=== PATIENT | female | born 1955 | race Hispanic/Latino ===

== ENCOUNTER 2020-03-02 00:45 | Emergency (ER) | payer BC ==
[~2020-03-02] VITALS: Ht 167.6 cm; Wt 72.6 kg
[~2020-03-02 00:45] MED LIST: PLAQUENIL200 MG PO; Z.0.VAGIFEM10 MCG VG; Z.0.VICODIN 5-5001 E PO; Z.1.DIOVAN HCT 1601 PO; [UNRECOGNIZED DRUG - OTHER] SQ
--- OUTSIDE RECORDS SUMMARY | 2020-03-02 00:48 | XMS REPORT ---
Author Author APRIL Del Cid Organization [employer] Address Unknown Phone Unavailable Care Team Providers Care Fishing Floats Assembler Name Role Phone Min Del Cid CP Unavailable Allergies No Known Allergies Problems Problem Type Condition Code Onset Dates Condition Statu s Problem Osteopenia M85.80 Active Problem Right foot pain M79.671 Active Problem Myofascial pain M79.1 Active Problem Other shelter (current) drug therapy Z79.899 Active Problem Rheumatoid arthritis with rh eumatoid factor of multiple sites without organ or systems involvement M05.79 Active Problem Posterior tibial tendinitis, right leg M76.821 Active Problem Ankle pain, right M25.571 Active Problem Pain in right knee M25.561 Active Problem Liver function abnormality K76.89 A ctive Problem Vitamin D deficiency E55.9 Active Problem Encounter for immunization Z23 A ctive Problem Primary osteoarthritis involving multiple joints M15.0 Active Problem Shortness of breath R06.02 Active Medications No Known Medications Results No Known Results Summary Purpose eClinicalWorks Submission
--- OUTSIDE RECORDS SUMMARY | 2020-03-02 00:48 | XMS REPORT | Continuity of Care Document ---
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 Active Problem Chapo Del Cid Shortness of breath Active Problem 02/23/2020 Chapo Del Cid Vitamin D deficiency Active Problem 02/23/2020 Chapo Del Cid Primary osteoarthritis involving multiple joints Active Problem 02/23/2020 Chapo Del Cid Myofascial pain Active Problem 02/23/2020 Chapo Del Cid Osteopenia Active Problem 07/11/2019 Chapo Del Cid Encounter for immunization Act marixa Problem Chapo Nehemias Right foot pain Active Problem 02/23/2020 Chapo Del Cid Osteoporosis Active Problem 02/23/2020 Chapo Nehemias Ankle pain, right Active Problem 02/23/2020 Chapo Nehemias Liver function abnormality Act marixa Problem Chapo Nehemias Pain in right knee Active Problem 02/23/2020 Chapo Del Cid Elevated LFTs Active Diagnosis 05/10/2019 Chapo Del Cid Elevated liver enzymes Active Diagnosis 05/10/2019 Chapo Del Cid Right knee meniscal tear Active Diagnosis 01/23/2019 Chapo Del Cid Elevated liver function tests Active Diagnosis 0 04/28/2019 Chapo Del Cid jail prescription opiate use Active Diagnosis 0 05/26/2019 Chapo Del Cid Opiate use Active Problem 02/23/2020 Chapo Del Cid Immunocompromised state Active Problem 02/23/2020 Chapo Del Cid Other chronic pain Active Problem 02/23/2020 Chapo Del Cid Abnormal kidney function study Active Diagnosis 0 02/08/2020 Chapo Del Cid jail (current) use of opiate analgesic Active Diagnosis 02/08/2020 Chapo Del Cid Medications Medication Details Route Status Patient Instructions Ordering Provider Order Date Source Hydroxychloroquine Sulfate 1 t ablet Orally Active 200 MG Orally Once a day [place] 01/15/2020 Chapo Del Cid Enbrel SureClick 1 ml Subcutaneous Active 50 MG/ML Subcutaneous every week [place] 12/26/2019 Chapo Del Cid Hydrocodone-Acetaminophen 1 ta blet Orally Active 5-325 MG Orally BID [place] 10/09/2019 Chapo Del Cid Hydrocodone-Acetaminophen 1 ta blet Orally Active 10-325 MG Orally BID [place] 10/09/2019 Chapo Del Cid Hydroxychloroquine Sulfate 1 t ablet Orally Active 200 MG Orally Once a day [place] 09/19/2019 Chapo Del Cid Prolia as directed Subcutaneous Active 60 MG/ML Subcutaneous Q 6 MONTHS [place] 09/17/2019 Chapo Del Cid PredniSONE 1 tablet Orally Active 5 MG Orally Once a day [place] 09/14/2019 Chapo Del Cid Sulfasalazine 3 tabs Orally Active 500 MG Orally bid [facility] 06/26/2019 Chapo Del Cid PredniSONE 2 tablets Orally Active 5 MG Orally Once a day [facility] 05/28/2019 Chapo Del Cid PredniSONE 5 tablets Orally Active 1 MG Orally Once a day [place] 05/28/2019 Chapo Del Cid Enbrel SureClick 1 ml Subcutaneous Active 50 MG/ML Subcutaneous every week [place] 04/30/2019 Chapo Del Cid PredniSONE 1 tablet Orally Active 10 MG Orally Once a day [facility] 04/22/2019 Chapo Del Cid Medrol Dose [place] as directed Orally Active 4mg Orally once a day [facility] 04/17/2019 Chapo Del Cid Humira Pen 0.8 ml Subcutaneous Active 40 MG/0.8ML Subcutaneou s Every two weeks [place] 02/12/2019 Chapo Del Cid Voltaren Gel apply to affected area Transdermal Active 1% Transdermal Four times a day [facility] 01/05/2019 Chapo Del Cid Medrol Dose [place] as directed Orally Active 4mg Orally once a day [facility] 01/05/2019 Chapo Del Cid PredniSONE 2 tablets Orally Active 10 MG Orally q am with food [place] 10/20/2018 Chapo Del Cid Medrol 2 tablets with food or milk in the morning Orally Active 4 MG Orally q am with food [place] 10/12/2018 Chapo Del Cid Medrol Dose [place] as directed Orally Active 4mg Orally as directed [place] 09/21/2018 Chapo Del Cid Hydroxychloroquine Sulfate 1 T ablet Orally Active 200 MG Orally Twice a day Del Cid 09/05/2018 Chapo Del Cid PredniSONE 2 tablets Orally Active 5 MG Orally Once a day Del Cid 01/16/2018 Chapo Del Cid Humira Pen 0.8 ml Subcutaneous Active 40 MG/0.8ML Subcutaneou s Every two weeks Zelayamariano Del Cid Hydroxychloroquine Sulfate 1 t ablet Orally Active 200 MG Orally Twice a day Julio Cesar Chapo Del Cid Probiotic as directed Orally Active OTC Orally Once a day Eric Del Cid Vagifem 1 tablet Vaginal Active 10 MCG Vaginal twice a week Eric Del Cid Valsartan-Hydrochlorothiazide 1 tablet Orally Active 160-12.5 MG Orally Once a day Eric Del Cid Calcium 500 + D 1 tablet with food Orally Active 500-600 MG-IU Orally Once a day Nehemias Del Cid Omeprazole 1 capsule as needed Orally Active 20 MG Orally as needed Julio Cesar Chapo Del Cid Hydrocodone-Acetaminophen 1 ta blet Orally Active 500mg Orally PRJoao Del Cid Pataday as directed Ophthalmic Active 0.2 % Ophthalmic as nee ded Julio Cesar Chapo Del Cid Hydrocodone-Acetaminophen 1 ta blet Orally Active 500mg Orally GOLDEN Del Cid Hydrocodone-Acetaminophen 1 ta blet Orally Active 5-325 MG Orally BID Julio Cesar Chapo Del Cid Protonix 1 tablet Orally Active 20 MG Orally Once a day Eric Del Cid PredniSONE 1 tablet Orally Active 20 MG Orally Once a day [facility] darian Del Cid Humira Pen 0.8 ml Subcutaneous Active 40 MG/0.8ML Subcutaneou s Every two weeks Nehemias Del Cid Hydroxychloroquine Sulfate 1 t ablet Orally Active 200 MG Orally Once a day Julio Cesar Chapo Del Cid Allergies, Adverse Reactions, Alerts Substance Category Reaction Severity Reaction type Status Date Reported Comments Source Simvastatin Adverse Reaction elevated liver enzymes Adverse Reaction Active 01/22/2020 Chapo Del Cid Celebrex Adverse Reaction increased blood pressure Adverse Reaction Active 01/22/2020 Chapo Del Cid Methotrexate Adverse Reaction not tolerated Adverse Reaction Active 01/22/2020 Chapo Del Cid Prednisone Adverse Reaction elevated liver functions Adverse Reaction Active 01/22/2020 Chapo Del Cid Sulfasalazine Adverse Reaction stomach upset Adverse Reaction Active 01/22/2020 Chapo Del Cid Immunizations No Data Provided for This Section Results No Data Provided for This Section Pathology Reports No Data Provided for This Section Diagnostic Reports No Data Provided for This Section Consultation Notes No Data Provided for This Section Discharge Summaries No Data Provided for This Section History and Physicals No Data Provided for This Section Vital Signs Vital Sign Value Date Comments Source Weight 172.8 01/22/2020 Chapo Del Cid Height 65 0 01/22/2020 Chapo Del Cid Temperature Oral (F) 98.0 F 01/22/2020 Chapo Del Cid Heart Rate 78 01/22/2020 Chapo Del Cid Diastolic (mm Hg) 80 01/22/2020 Chapo Del Cid Systolic (mm Hg) 142 01/22/2020 Chapo Del Cid Weight 175.1 12/18/2019 Chapo Del Cid Height 65 0 12/18/2019 Chapo Del Cid Temperature Oral (F) 98.5 F 12/18/2019 Chapo Del Cid Heart Rate 84 12/18/2019 Chapo Del Cid Diastolic (mm Hg) 76 12/18/2019 Chapo Del Cid Systolic (mm Hg) 122 12/18/2019 Chapo Del Cid Weight 175.2 11/13/2019 Chapo Del Cid Height 65.5 11/13/2019 Chapo Del Cid Temperature Oral (F) 98.8 F 11/13/2019 Chapo Del Cid Heart Rate 112 11/13/2019 Chapo Del Cid Diastolic (mm Hg) 82 11/13/2019 Chapo Del Cid Systolic (mm Hg) 144 11/13/2019 Chapo Del Cid Weight 167.7 06/26/2019 Chapo Del Cid Height 65 0 06/26/2019 Chapo Del Cid Temperature Oral (F) 99.2 F 06/26/2019 Chapo Del Cid Heart Rate 80 06/26/2019 Chapo Del Cid Diastolic (mm Hg) 78 06/26/2019 Chapo Del Cid Systolic (mm Hg) 132 06/26/2019 Chapo Del Cid Weight 179.1 03/15/2019 Chapo Del Cid Height 66 0 03/15/2019 Chpao Del Cid Temperature Oral (F) 98.2 F 03/15/2019 Chapo Del Cid Heart Rate 96 03/15/2019 Chapo Del Cid Diastolic (mm Hg) 80 03/15/2019 Chapo Del Cid Systolic (mm Hg) 148 03/15/2019 Chapo Del Cid Weight 181 12/11/2018 Chapo Del Cid Height 66 0 12/11/2018 Chapo Del Cid Temperature Oral (F) 98.1 F 12/11/2018 Chapo Del Cid Heart Rate 84 12/11/2018 Chapo Del Cid Diastolic (mm Hg) 62 12/11/2018 Chapo Del Cid Systolic (mm Hg) 132 12/11/2018 Chapo Del Cid Weight 180.6 11/02/2018 Chapo Del Cid Height 66 0 11/02/2018 Chapo Del Cid Temperature Oral (F) 97.3 F 11/02/2018 Chapo Del Cid Heart Rate 72 11/02/2018 Chapo Del Cid Diastolic (mm Hg) 70 11/02/2018 Chapo Del Cid Systolic (mm Hg) 132 11/02/2018 Chapo Del Cid Weight 183.8 09/21/2018 Chapo Del Cid Height 65 1 11/22/2017 Chapo Del Cid Temperature Oral (F) 97.8 F 09/21/2018 Chapo Del Cid Heart Rate 72 09/21/2018 Chapo Del Cid Diastolic (mm Hg) 70 09/21/2018 Chapo Del Cid Systolic (mm Hg) 138 09/21/2018 Chapo Del Cid Weight 178.2 05/22/2018 Chapo Del Cid Height 65 0 05/22/2018 Chapo Del Cid Temperature Oral (F) 97.8 F 05/22/2018 Chapo Del Cid Heart Rate 76 05/22/2018 Chapo Del Cid Diastolic (mm Hg) 80 05/22/2018 Chapo Del Cid Systolic (mm Hg) 122 05/22/2018 Chapo Del Cid Weight 183 01/16/2018 Chapo Del Cid Height 65 0 01/16/2018 Chapo Del Cid Temperature Oral (F) 98.3 F 01/16/2018 Chapo Del Cid Heart Rate 72 01/16/2018 Chapo Del Cid Diastolic (mm Hg) 90 01/16/2018 Chapo Del Cid Systolic (mm Hg) 140 01/16/2018 Chapo Del Cid Weight 184 09/15/2017 Chapo Del Cid Height 65 1 11/16/2016 Chapo Del Cid Temperature Oral (F) 97.6 F 09/15/2017 Chapo Del Cid Heart Rate 76 09/15/2017 Chapo Del Cid Diastolic (mm Hg) 80 09/15/2017 Chapo Del Cid Systolic (mm Hg) 136 09/15/2017 Chapo Del Cid Encounters No Data Provided for This Section Procedures No Data Provided for This Section Assessment and Plan No Data Provided for This Section Plan of Care No Data Provided for This Section Social History No Data Provided for This Section Family History No Data Provided for This Section Advance Directives No Data Provided for This Section Functional Status No Data Provided for This Section
--- OUTSIDE RECORDS SUMMARY | 2020-03-02 00:48 | XMS REPORT | Clinical Summary ---
Author Author Uriel Buddhist Organization [employer] Address Unknown Phone Unavailable Care Team Providers Care Police Communications Operator Name Role Phone Asked, No Pcp PCP Unavailable Allergies No Known Allergies Medications End Date Status Medication Sig Dispensed Refills Start Date Active omeprazole (PriLOSEC) 20 Take 20 mg by 0 MG capsule mouth daily. Active hydroxychloroquine Take 200 mg 0 (PLAQUENIL) 200 mg tablet by mouth daily. Active amoxicillin (AMOXIL) 500 Take 500 mg 0 MG capsule by mouth 2 (two) times a day. Active valsartan-hydrochlorothia Take 1 tablet 0 zide (DIOVAN-HCT) by mouth 160-12.5 mg per tablet daily. Active pantoprazole (PROTONIX) Take 40 mg by 0 40 MG EC tablet mouth daily. Active HYDROcodone-acetaminophen Take 1 tablet 0 (NORCO) 5-325 mg per by mouth tabletIndications: acute every 6 (six) pain hours as needed for moderate pain .Acute Pain. Active naproxen sodium (ALEVE) Take by 0 220 mg capsule mouth. Active etanercept (ENBREL) 50 Inject 50 mg 0 mg/mL (0.98 mL) injection under the skin once a week. Active predniSONE (DELTASONE) 10 Take 10 mg by 0 mg tablet mouth daily. Active Problems Not on file Encounters Care Team Description Date Type Specialty Leroy Snyder MD Primary localized osteoarthrosis of righ t lower leg (Primary Dx); Rheumatoid arthritis involving multiple sites with positive rheumatoid factor (HCC) 07/06/2019 Office Visit Orthopedic Surgery after 03/02/2019 Social History Date Tobacco Use Types Packs/Day Years Used Never Smoker Smokeless Tobacco: Never Used Drinks/Week oz/Week Comments Alcohol Use No Sex Assigned at Date Recorded Not on file Industry Job Start Date Occupation Not on file Not on file Not on file Travel End Travel History Travel Start No recent travel history available. Last Filed Vital Signs Reading Time Taken Comments Vital Sign - - Blood Pressure - - Pulse - - Temperature - - Respiratory Rate - - Oxygen Saturation - - Inhaled Oxygen Concentration 76.2 kg (168 lb) 07/06/2019 9:45 AM CDT Weight 166.4 cm (5' 5.5") 07/06/2019 9:45 AM CDT Height 27.53 07/06/2019 9:45 AM CDT Body Mass Index Plan of Treatment Health Maintenance Due Date Last Done Comments CERVICAL CANCER SCREENING 1977 BREAST CANCER SCREENING 2006 COLONOSCOPY SCREENING 2006 SHINGLES VACCINES (#1) 2006 INFLUENZA VACCINE 05/10/2020 Procedures Comments Procedure Name Priority Date/Time Associated Diag nosis XR KNEE 4+ VW RIGHT Routine 07/06/2019 Primary lo calized 10:20 AM CDT osteoarthrosis of right lower leg NE ARTHROCENTESIS Routine 07/06/2019 Primary loca lized ASPIR&/INJ MAJOR JT/BURSA 9:45 AM CDT osteoarthro sis of right W/O US lower leg after 03/02/2019 Results * XR Knee 4+ Vw Right (07/06/2019 10:20 AM CDT) Specimen Narrative Performed At [facility] X-ray of the right knee shows the patie nt has moderate narrowing of the medial compartment on the Ale[place] vie w as well as moderate narrowing of the patellofemoral compartment subchond ral sclerosis. Performing Organization Address City/State/Zipcode Ph one Number [facility] [address] [place] [address] * Large Joint Arthrocentesis: knee, R knee (07/06/2019 9:45 AM CDT) Narrative Performed At Leroy Snyder MD 019 10:46 AM Large Joint Arthrocentesis: knee, R kne e Consent given by: patient Supporting Documentation Indications: pain Procedure Details Location: knee - R knee Right side: Needle size: 22 G Approach: anteromedial Right knee medications administered: 3 mL lidocaine 10 mg/mL (1 %); 1 mL triamcinolone acetonide 40 mg/mL Patient tolerance: patient tolerated th e procedure well with no immediate complications after 03/02/2019 Insurance Type Payer Benefit Subscriber ID Effective Phone Address Plan / Dates Group PPO BCBS BCBS xxxxxxxxxxxx 2009-P CHOICE resent PPO/ASHLEY YAP PPO
--- OUTSIDE RECORDS SUMMARY | 2020-03-02 00:48 | XMS REPORT ---
Author Author APRIL Reyes Organization [employer] Address Unknown Phone Unavailable Care Team Providers Care Scratch Brusher Name Role Phone Lulu Reyes CP Unavailable Allergies No Known Allergies Problems Problem Type Condition Code Onset Dates Condition Statu s Problem Myofascial pain M79.1 Active Problem Encounter for immunization Z23 A ctive Problem Right foot pain M79.671 Active Problem Other jail (current) drug therapy Z79.899 Active Problem Rheumatoid arthritis with rh eumatoid factor of multiple sites without organ or systems involvement M05.79 Active Problem Posterior tibial tendinitis, right leg M76.821 Active Problem Osteoporosis M81.0 Active Problem Ankle pain, right M25.571 Active Problem Liver function abnormality K76.89 A ctive Problem Shortness of breath R06.02 Active Problem Vitamin D deficiency E55.9 Active Problem Pain in right knee M25.561 Active Problem Primary osteoarthritis involving multiple joints M15.0 Active Medications No Known Medications Results No Known Results Summary Purpose [employer]ClinicalWorks Submission
--- OUTSIDE RECORDS SUMMARY | 2020-03-02 00:48 | XMS REPORT ---
Author Author APRIL Del Cid Organization [employer] Address Unknown Phone Unavailable Care Team Providers Care Patent Drafter Name Role Phone Min Del Cid CP Unavailable Allergies No Known Allergies Problems Problem Type Condition Code Onset Dates Condition Statu s Problem Osteopenia M85.80 Active Problem Right foot pain M79.671 Active Problem Myofascial pain M79.1 Active Problem Other longterm (current) drug therapy Z79.899 Active Problem Rheumatoid [...]
--- OUTSIDE RECORDS SUMMARY | 2020-03-02 00:49 | XMS REPORT ---
Author Author APRIL Del Cid Organization [employer] Address Unknown Phone Unavailable Care Team Providers Care Server Engineer Name Role Phone Min Del Cid CP Unavailable Allergies No Known Allergies Problems Problem Type Condition Code Onset Dates Condition Statu s Problem Myofascial pain M79.1 Active Problem Encounter for immunization Z23 A ctive Problem Right foot pain M79.671 Active Problem Other correction (current) drug therapy Z79.899 Active Problem Rheumatoid [...]
--- OUTSIDE RECORDS SUMMARY | 2020-03-02 00:49 | XMS REPORT ---
Author Author APRIL Harrell Organization [employer] Address Unknown Phone Unavailable Care Team Providers Care Manager Cash Name Role Phone Doreen Harrell CP Unavailable Allergies No Known Allergies Problems Problem Type Condition Code Onset Dates Condition Statu s Problem Posterior tibial tendinitis, right leg M76.821 Active Problem Myofascial pain M79.1 Active Problem Osteopenia M85.80 Active Problem Other custodial (current) drug therapy Z79.899 Active Problem Rheumatoid arthritis with rh eumatoid factor of multiple sites without organ or systems involvement M05.79 Active Problem Pain in right knee M25.561 Active Problem Primary osteoarthritis involving multiple joints M15.0 Active Problem Ankle pain, right M25.571 Active Problem Encounter for immunization Z23 A ctive Problem Right foot pain M79.671 Active Problem Shortness of breath R06.02 Active Problem Vitamin D deficiency E55.9 Active Medications Medication Code System Code Instructions Start Date End Date Status Dosage Medrol Dose [facility] [id number] 4mg Orally once a day April 17, 2019 Active as directed Results No Known Results Summary Purpose [employer]ClinicalWorks Submission
--- OUTSIDE RECORDS SUMMARY | 2020-03-02 00:49 | XMS REPORT ---
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
--- OUTSIDE RECORDS SUMMARY | 2020-03-02 00:49 | XMS REPORT ---
Author Author APRIL Harrell Organization [employer] Address Unknown Phone Unavailable Care Team Providers Care Learning Facilitator Name Role Phone Doreen Harrell CP Unavailable Allergies No Known Allergies Problems Problem Type Condition Code Onset Dates Condition Statu s Problem Posterior tibial tendinitis, right leg M76.821 Active Problem Myofascial pain M79.1 Active Problem Osteopenia M85.80 Active Problem Other [facility] (current) drug therapy Z79.899 Active Problem Rheumatoid [...]
--- OUTSIDE RECORDS SUMMARY | 2020-03-02 00:49 | XMS REPORT ---
Author Author APRIL Del Cid Organization [employer] Address Unknown Phone Unavailable Care Team Providers Care Dross Puller Name Role Phone Min Del Cid CP Unavailable Allergies No Known Allergies Problems Problem Type Condition Code Onset Dates Condition Statu s Problem Myofascial pain M79.1 Active Problem Encounter for immunization Z23 A ctive Problem Right foot pain M79.671 Active Problem Other half-way (current) drug therapy Z79.899 Active Problem Rheumatoid [...]
--- OUTSIDE RECORDS SUMMARY | 2020-03-02 00:49 | XMS REPORT ---
Author Author APRIL Del Cid Organization [employer] Address Unknown Phone Unavailable Care Team Providers Care Metropolitan Editor Name Role Phone Min Del Cid CP Unavailable Allergies No Known Allergies Problems Problem Type Condition Code Onset Dates Condition Statu s Problem Posterior tibial tendinitis, right leg M76.821 Active Problem Rheumatoid arthritis with rh eumatoid factor of multiple sites without organ or systems involvement M05.79 Active Problem Other long term care phlebotomist (current) drug therapy Z79.899 Active Problem Shortness of breath R06.02 Active Problem Vitamin D deficiency E55.9 Active Problem Primary osteoarthritis involving multiple joints M15.0 Active Problem Myofascial pain M79.1 Active Problem Osteopenia M85.80 Active Problem Encounter for immunization Z23 A ctive Problem Right foot pain M79.671 Active Medications No Known Medications Results No Known Results Summary Purpose [employer]ClinicalWorks Submission
--- OUTSIDE RECORDS SUMMARY | 2020-03-02 00:49 | XMS REPORT ---
Author Author APRIL Del Cid Organization [employer] Address Unknown Phone Unavailable Care Team Providers Care Test Desk Supervisor Name Role Phone Min Del Cid CP Unavailable Allergies No Known Allergies Problems Problem Type Condition Code Onset Dates Condition Statu s Problem Vitamin D deficiency E55.9 Active Problem Primary osteoarthritis involving multiple joints M15.0 Active Problem Shortness of breath R06.02 Active Problem Opiate use F11.90 Active Problem Immunocompromised state D89.9 Acti ve Problem Other chronic pain G89.29 Active Problem Ankle pain, right M25.571 Active Problem Pain in right knee M25.561 Active Problem Liver function abnormality K76.89 A ctive Problem Osteoporosis M81.0 Active Assessment Ankle pain, right M25.571 Active Problem Posterior tibial tendinitis, right leg M76.821 Active Problem Myofascial pain M79.1 Active Problem Other [facility] (current) drug therapy Z79.899 Active Problem Right foot pain M79.671 Active Problem Rheumatoid arthritis with rh eumatoid factor of multiple sites without organ or systems involvement M05.79 Active Problem Encounter for immunization Z23 A ctive Medications No Known Medications Results No Known Results Summary Purpose [employer] Submission
--- OUTSIDE RECORDS SUMMARY | 2020-03-02 00:49 | XMS REPORT ---
Author Author APRIL Del Cid Organization [employer] Address Unknown Phone Unavailable Care Team Providers Care Senior Science Consultant Name Role Phone Min Del Cid CP Unavailable Allergies No Known Allergies Problems Problem Type Condition Code Onset Dates Condition Statu s Problem Posterior tibial tendinitis, right leg M76.821 Active Problem Rheumatoid arthritis with rh eumatoid factor of multiple sites without organ or systems involvement M05.79 Active Problem Other snf (current) drug therapy Z79.899 Active Assessment Rheumatoid arthritis with rh eumatoid factor of multiple sites without organ or systems involvement M05.79 Active Problem Shortness of breath R06.02 Active Problem Vitamin D deficiency E55.9 Active Problem Primary osteoarthritis involving multiple joints M15.0 Active Problem Myofascial pain M79.1 Active Problem Osteopenia M85.80 Active Problem Encounter for immunization Z23 A ctive Problem Right foot pain M79.671 Active Medications No Known Medications Results No Known Results Summary Purpose [employer] Submission
--- OUTSIDE RECORDS SUMMARY | 2020-03-02 00:49 | XMS REPORT ---
Author Author APRIL Del Cid Organization [employer] Address Unknown Phone Unavailable Care Team Providers Care Rigger Apprentice Name Role Phone Min Del Cid CP Unavailable Allergies No Known Allergies Problems Problem Type Condition Code Onset Dates Condition Statu s Problem Posterior tibial tendinitis, right leg M76.821 Active Problem Myofascial pain M79.1 Active Problem Osteopenia M85.80 Active Problem Pain in right knee M25.561 Active Problem Primary osteoarthritis involving multiple joints M15.0 Active Problem Ankle pain, right M25.571 Active Problem Encounter for immunization Z23 A ctive Problem Right foot pain M79.671 Active Problem Shortness of breath R06.02 Active Problem Vitamin D deficiency E55.9 Active Assessment Elevated LFTs R79.89 Active Problem Other intermediate designer (current) drug therapy Z79.899 Active Assessment Elevated liver enzymes R74.8 Activ e Problem Rheumatoid arthritis with rh eumatoid factor of multiple sites without organ or systems involvement M05.79 Active Medications No Known Medications Results No Known Results Summary Purpose eClinicalWorks Submission
--- OUTSIDE RECORDS SUMMARY | 2020-03-02 00:49 | XMS REPORT ---
Author Author APRIL Harrell Organization [employer] Address Unknown Phone Unavailable Care Team Providers Care Security Strategist Name Role Phone Doreen Harrell CP Unavailable [...]
--- OUTSIDE RECORDS SUMMARY | 2020-03-02 00:49 | XMS REPORT ---
Author Author APRIL Del Cid Organization [employer] Address Unknown Phone Unavailable Care Team Providers Care Engineering Intern Name Role Phone Min Del Cid CP Unavailable Allergies No Known Allergies Problems Problem Type Condition Code Onset Dates Condition Statu s Problem Posterior tibial tendinitis, right leg M76.821 Active Problem Rheumatoid arthritis with rh eumatoid factor of multiple sites without organ or systems involvement M05.79 Active Problem Other special delivery worker (current) drug therapy Z79.899 Active Problem Shortness [...]
--- OUTSIDE RECORDS SUMMARY | 2020-03-02 00:49 | XMS REPORT ---
Author Author APRIL Del Cid Organization [employer] Address Unknown Phone Unavailable Care Team Providers Care Acoustical Tile Drill Press Operator Name Role Phone Min Del Cid CP Unavailable Allergies No Known Allergies Problems Problem Type Condition Code Onset Dates Condition Statu s Problem Myofascial pain M79.1 Active Problem Encounter for immunization Z23 A ctive Problem Right foot pain M79.671 Active Problem Other [facility] (current) drug therapy Z79.899 Active Problem Rheumatoid [...]
--- OUTSIDE RECORDS SUMMARY | 2020-03-02 00:49 | XMS REPORT ---
Author Author APRIL Zelaya [facility] [place] e[employer] Address Unknown Phone Unavailable Care Team Providers Care Finishing Wire Sawyer Name Role Phone Juliette Zelaya Unavailable Allergies, Adverse Reactions, Alerts Substance Reaction Event Type Simvastatin elevated liver enzymes Non Drug Allergy Celebrex increased blood pressure Non Drug Allerg y Methotrexate not tolerated Non Drug Allergy Prednisone elevated liver functions Non Drug Allerg y Problems Problem Type Condition Code Onset Dates Condition Statu s Problem Posterior tibial tendinitis, right leg M76.821 Active Problem Rheumatoid arthritis with rh eumatoid factor of multiple sites without organ or systems involvement M05.79 Active Problem Other predatory animal exterminator (current) drug therapy Z79.899 Active Assessment Other predatory animal exterminator (current) drug therapy Z79.899 Active Assessment Rheumatoid [...] Problem Right foot pain M79.671 Active Medications Medication Code System Code Instructions Start Date End Date Status Dosage Pataday [facility] 85254281951 0.2 % Ophthalmic as needed A ctive as directed Valsartan-Hydrochlorothiazide [facility] 93982790996 160-12.5 MG Orally Once a day Active 1 tablet Hydroxychloroquine Sulfate [facility] 09669595683 200 MG Orally Twice a day Active 1 tablet Humira Pen [facility] 31310271450 40 MG/0.8ML Subcutaneous Every two weeks Active 0.8 ml Vagifem [facility] 73990894701 10 MCG Vaginal twice a week Active 1 tablet Omeprazole [facility] 74317959708 20 MG Orally as needed Ac tive 1 capsule as needed PredniSONE [facility] 33694679261 20 MG Orally Once a day A ctive 1 tablet Probiotic [facility] 65331853211 OTC Orally Once a day Acti ve as directed Medrol [facility] 91924535145 4 MG Orally q am with food Oct 12 9 January 10, 2019 Active 2 tablets with food or milk in the morni ng Hydrocodone-Acetaminophen [facility] 19751790491 5-325 MG Orally BID Active 1 tablet Vital Signs Date/Time: December 11, 2018 BMI 29.21 Index Weight 181 lbs Height 66 in Temperature 98.1 F Cardiac Monitoring Heart Rate 84 /min Blood Pressure Diastolic 62 mm Hg Blood Pressure Systolic 132 mm Hg Results Name Result Date Reference Range Unit Abnormali ty Flag Skeletal Muscle Relaxants Sedatives Opiates/Opioids Illicits PROVIDED MEDICATIONS ----PROVIDED MEDICATIONS N/A [id number] ANTIDEPRESSANTS Amphetamines Benzodiazepines 1099 SPECIMEN VALIDITY TESTING Barbiturates Summary Purpose eClinicalWorks Submission
--- OUTSIDE RECORDS SUMMARY | 2020-03-02 00:49 | XMS REPORT ---
Author Author APRIL Del Cid Organization [employer] Address Unknown Phone Unavailable Care Team Providers Care Product Lister Name Role Phone Min Del Cid CP Unavailable Allergies No Known Allergies Problems Problem Type Condition Code Onset Dates Condition Statu s Problem Myofascial pain M79.1 Active Problem Encounter for immunization Z23 A ctive Problem Right foot pain M79.671 Active Problem Other halfway (current) drug therapy Z79.899 Active Problem Rheumatoid [...]
--- OUTSIDE RECORDS SUMMARY | 2020-03-02 00:49 | XMS REPORT ---
Author Author APRIL Del Cid Organization [employer] Address Unknown Phone Unavailable Care Team Providers Care Dryland Farmer Name Role Phone Min Del Cid CP Unavailable Allergies No Known Allergies Problems Problem Type Condition Code Onset Dates Condition Statu s Problem Posterior tibial tendinitis, right leg M76.821 Active Problem Rheumatoid arthritis with rh eumatoid factor of multiple sites without organ or systems involvement M05.79 Active Problem Other exterminator helper termite (current) drug therapy Z79.899 Active Problem Shortness [...]
--- OUTSIDE RECORDS SUMMARY | 2020-03-02 00:49 | XMS REPORT ---
Author Author APRIL Del Cid Organization [employer] Address Unknown Phone Unavailable Care Team Providers Care Dairy Clerk Name Role Phone Min Del Cid CP Unavailable Allergies No Known Allergies Problems Problem Type Condition Code Onset Dates Condition Statu s Problem Posterior tibial tendinitis, right leg M76.821 Active Problem Myofascial pain M79.1 Active Problem Osteopenia M85.80 Active Assessment Elevated liver function tests R94.5 Active Problem Other [facility] (current) drug therapy Z79.899 Active Problem Rheumatoid [...]
--- OUTSIDE RECORDS SUMMARY | 2020-03-02 00:49 | XMS REPORT ---
Author Author APRIL Del Cid Organization [employer] Address Unknown Phone Unavailable Care Team Providers Care Bread Oven Operator Name Role Phone Min Del Cid CP Unavailable Allergies No Known Allergies Problems Problem Type Condition Code Onset Dates Condition Statu s Problem Posterior tibial tendinitis, right leg M76.821 Active Problem Rheumatoid arthritis with rh eumatoid factor of multiple sites without organ or systems involvement M05.79 Active Problem Other skilled nursing (current) drug therapy Z79.899 Active Problem Shortness [...]
--- OUTSIDE RECORDS SUMMARY | 2020-03-02 00:49 | XMS REPORT ---
Author Author APRIL Del Cid Organization [employer] Address Unknown Phone Unavailable Care Team Providers Care Scout Name Role Phone Min Del Cid CP Unavailable Allergies No Known Allergies Problems Problem Type Condition Code Onset Dates Condition Statu s Problem Osteopenia M85.80 Active Problem Right foot pain M79.671 Active Problem Myofascial pain M79.1 Active Problem Other skilled nursing (current) drug therapy Z79.899 Active Problem Rheumatoid [...] Problem Shortness of breath R06.02 Active Medications Medication Code System Code Instructions Start Date End Date Status Dosage Humira Pen [facility] 26735338941 40 MG/0.8ML Subcutaneous Mary ry two weeks February 12, 2019 Active 0.8 ml Results No Known Results Summary Purpose eClinicalWorks Submission
--- OUTSIDE RECORDS SUMMARY | 2020-03-02 00:49 | XMS REPORT ---
Author Author APRIL Del Cid Organization [employer] Address Unknown Phone Unavailable Care Team Providers Care Dental Mechanic Name Role Phone Min Del Cid CP Unavailable Allergies No Known Allergies Problems Problem Type Condition Code Onset Dates Condition Statu s Problem Myofascial pain M79.1 Active Problem Encounter for immunization Z23 A ctive Problem Right foot pain M79.671 Active Problem Other [facility] (current) drug therapy [...] osteoarthritis involving multiple joints M15.0 Active Medications Medication Code System Code Instructions Start Date End Date Status Dosage Hydrocodone-Acetaminophen [facility] 29548726645 5-325 MG Orally BID De c 2018 Active 1 tablet Results No Known Results Summary Purpose eClinicalWorks Submission
--- OUTSIDE RECORDS SUMMARY | 2020-03-02 00:49 | XMS REPORT ---
Author APRIL Spring [facility] [place] e[employer] Address Unknown Phone Unavailable Care Team Providers Care Trace Clerk Name Role Phone Min Del Cid CP Unavailable Allergies, Adverse Reactions, Alerts Substance Reaction Event Type Simvastatin elevated liver enzymes Non Drug Allergy Celebrex increased blood pressure Non Drug Allerg y Methotrexate not tolerated Non Drug Allergy Prednisone elevated liver functions Non Drug Allerg y Problems Problem Type Condition Code Onset Dates Condition Statu s Assessment Rheumatoid arthritis with rh eumatoid factor of multiple sites without organ or systems involvement M05.79 Active Problem Other snf (current) drug therapy Z79.899 Active Problem Posterior tibial tendinitis, right leg M76.821 Active Assessment Other superintendent marine oil terminal (current) drug therapy Z79.899 Active Assessment Shortness of breath R06.02 Active Problem Vitamin D deficiency E55.9 Active Problem Encounter for immunization Z23 A ctive Problem Shortness of breath R06.02 Active Problem Osteopenia M85.80 Active Problem Rheumatoid arthritis with rh eumatoid factor of multiple sites without organ or systems involvement M05.79 Active Problem Right foot pain M79.671 Active Problem Myofascial pain M79.1 Active Medications Medication Code System Code Instructions Start Date End Date Status Dosage Humira Pen [facility] 50546621236 40 MG/0.8ML Subcutaneous Every two weeks Active 0.8 ml Hydroxychloroquine Sulfate [facility] 49392101579 200 MG Once a day Active TAKE 1 TABLET BY MOUTH TWICE DAILY WITH FOOD OR MILK Probiotic [facility] 60086151972 OTC Orally Once a day Acti ve as directed Vagifem [facility] 19331416492 10 MCG Vaginal twice a week Active 1 tablet Valsartan-Hydrochlorothiazide [facility] 71788427885 160-12.5 MG Orally Once a day Active 1 tablet Calcium 500 + D [facility] 92001-75997 500-600 MG-IU Orally Once a day Active 1 tablet with food Omeprazole [facility] 30232684513 20 MG Orally as needed Ac tive 1 capsule as needed Hydrocodone-Acetaminophen [facility] [address]-35 500mg Orally PRN Active 1 tablet Pataday [facility] 50315872148 0.2 % Ophthalmic as needed A ctive as directed Vital Signs Date/Time: Sep 15, 2017 BMI 30.62 Index Weight 184 lbs Height 65 in Temperature 97.6 F Cardiac Monitoring Heart Rate 76 /min Blood Pressure Diastolic 80 mm Hg Blood Pressure Systolic 136 mm Hg Results Name Result Date Reference Range Unit Abnormali ty Flag COMPREHENSIVE METABOLIC PANEL W/EGFR ----CALCIUM 9.5 [id number] 8.6-10.4 mg/dL N ----CARBON DIOXIDE 28 93209505 20-31 mmol/L N ----ALT 44 97282978 6-29 U/L H ----CREATININE 0.85 78386566 0.50-0.99 mg/dL N ----AST 30 73862324 10-35 U/L N ----eGFR NON-AFR. [place]IZ[place] 74 69370370 > OR = 60 mL/min/1. 73m2 N ----ALKALINE PHOSPHATASE 108 34297144 33-130 U/L N ----eGFR 86 63164446 > OR = 60 mL/min/1.7 3m2 N ----BILIRUBIN, TOTAL 0.8 14913159 0.2-1.2 mg/dL N ----BUN/CREATININE RATIO NOT APPLICABLE 20783260 6-22 (calc) ----ALBUMIN/GLOBULIN RATIO 1.5 90541792 1.0-2.5 (calc) N ----SODIUM 142 91685904 135-146 mmol/L N ----GLOBULIN 2.9 69546287 1.9-3.7 g/dL (calc) N ----POTASSIUM 4.0 07657601 3.5-5.3 mmol/L N ----GLUCOSE 98 89883552 65-99 mg/dL N ----CHLORIDE 104 33383740 98-110 mmol/L N ----ALBUMIN 4.4 71500422 3.6-5.1 g/dL N ----UREA NITROGEN (BUN) 20 62708523 7-25 mg/dL N ----PROTEIN, TOTAL 7.3 66292556 6.1-8.1 g/dL N SED RATE BY MODIFIED WESTERGREN ----SED RATE BY MODIFIED WESTERGREN 6 57347024 < OR = 30 mm/h N C-REACTIVE PROTEIN ----C-REACTIVE PROTEIN 5.6 95927504 <8.0 mg/L N CBC (INCLUDES DIFF/PLT) ----MCHC 34.2 50720254 32.0-36.0 g/dL N ----MCH 29.7 02719969 27.0-33.0 pg N ----PLATELET COUNT 248 81428617 140-400 Thousand/uL N ----RDW 12.1 10594787 11.0-15.0 % N ----BASOPHILS 0.7 25158281 % N ----ABSOLUTE NEUTROPHILS 3324 01320393 6651-5482 cells/uL N ----ABSOLUTE LYMPHOCYTES 1578 42659777 850-3900 cells/uL N ----MPV 10.3 56077168 7.5-12.5 fL N ----ABSOLUTE BASOPHILS 42 96037329 0-200 cells/uL N ----HEMATOCRIT 41.8 88243586 35.0-45.0 % N ----NEUTROPHILS 55.4 78102327 % N ----MCV 86.7 96020169 80.0-100.0 fL N ----RED BLOOD CELL COUNT 4.82 78463281 3.80-5.10 Million/uL N ----ABSOLUTE MONOCYTES 594 78398076 200-950 cells/uL N ----ABSOLUTE EOSINOPHILS 462 87573216 15-500 cells/uL N ----HEMOGLOBIN 14.3 20927042 11.7-15.5 g/dL N ----EOSINOPHILS 7.7 19169203 % N ----WHITE BLOOD CELL COUNT 6.0 62385969 3.8-10.8 Thousand/ uL N ----LYMPHOCYTES 26.3 56384251 % N ----MONOCYTES 9.9 75297351 % N Summary Purpose eClinicalWorks Submission
--- OUTSIDE RECORDS SUMMARY | 2020-03-02 00:49 | XMS REPORT ---
Author Author APRIL Harrell [facility] eClinicalWorks Address Unknown Phone Unavailable Care Team Providers Care Energy Scheduler Name Role Phone Doreen Harrell Unavailable Allergies, Adverse Reactions, Alerts Substance Reaction [...] Problem Vitamin D deficiency E55.9 Active Assessment Rheumatoid arthritis with rh eumatoid factor of multiple sites without organ or systems involvement M05.79 Active Problem Other extermination supervisor (current) drug therapy Z79.899 Active Assessment Ankle pain, right M25.571 Active Problem Rheumatoid arthritis with rh eumatoid factor of multiple sites without organ or systems involvement M05.79 Active Medications Medication Code System Code Instructions Start Date End Date Status Dosage Vagifem [facility] 46346717737 10 MCG Vaginal twice a week Active 1 tablet Omeprazole ND 85527128969 20 MG Orally as needed Ac tive 1 capsule as needed Humira Pen ND 53490595687 40 MG/0.8ML Subcutaneous Mary ry two weeks February 12, 2019 Active 0.8 ml Hydroxychloroquine Sulfate [facility] 06526736185 200 MG Orally Twice a day Active 1 tablet Probiotic ND 87025424546 OTC Orally Once a day Acti ve as directed Pataday ND 36196858097 0.2 % Ophthalmic as needed A ctive as directed PredniSONE ND 05474505506 10 MG Orally Once a day April 22, 2019 Active 1 tablet Hydrocodone-Acetaminophen [facility] 50203490322 5-325 MG Orally BID Active 1 tablet Protonix [facility] 83238872991 20 MG Orally Once a day Act marixa 1 tablet Valsartan-Hydrochlorothiazide [facility] 58662799883 160-12.5 MG Orally Once a day Active 1 tablet Vital Signs Date/Time: March 15, 2019 BMI 29 Index Weight 179.1 lbs Height 66 in Temperature 98.2 F Cardiac Monitoring Heart Rate 96 /min Blood Pressure Diastolic 80 mm Hg Blood Pressure Systolic 148 mm Hg Results No Known Results Summary Purpose eClinicalWorks Submission
--- OUTSIDE RECORDS SUMMARY | 2020-03-02 00:49 | XMS REPORT ---
Author Author APRIL Del Cid Organization [employer] Address Unknown Phone Unavailable Care Team Providers Care Glass Embosser Name Role Phone Min Del Cid CP Unavailable Allergies No Known Allergies Problems Problem Type Condition Code Onset Dates Condition Statu s Assessment Rheumatoid arthritis with rh eumatoid factor of multiple sites without organ or systems involvement M05.79 Active Problem Other tank terminal gauger (current) drug therapy Z79.899 Active Problem Posterior tibial tendinitis, right leg M76.821 Active Assessment Other halfway (current) drug therapy Z79.899 Active Problem Vitamin D deficiency E55.9 Active Problem Encounter for immunization Z23 A ctive Problem Shortness of breath R06.02 Active Problem Osteopenia M85.80 Active Problem Rheumatoid arthritis with rh eumatoid factor of multiple sites without organ or systems involvement M05.79 Active Problem Right foot pain M79.671 Active Problem Myofascial pain M79.1 Active Medications No Known Medications Results No Known Results Summary Purpose eClinicalWorks Submission
--- OUTSIDE RECORDS SUMMARY | 2020-03-02 00:49 | XMS REPORT ---
Author Author APRIL Del Cid Organization [employer] Address Unknown Phone Unavailable Care Team Providers Care Turpentine Farmer Name Role Phone Min Del Cid CP Unavailable Allergies No Known Allergies Problems Problem Type Condition Code Onset Dates Condition Statu s Problem Posterior tibial tendinitis, right leg M76.821 Active Problem Rheumatoid arthritis with rh eumatoid factor of multiple sites without organ or systems involvement M05.79 Active Problem Other intermodal dispatcher (current) drug therapy Z79.899 Active Problem Shortness [...]
--- OUTSIDE RECORDS SUMMARY | 2020-03-02 00:49 | XMS REPORT ---
Author Author APRIL Reyes Organization [employer]Works Address Unknown Phone Unavailable Care Team Providers Care Transmitter Supervisor Name Role Phone Lulu Reyes CP Unavailable Allergies, Adverse Reactions, Alerts Substance Reaction Event Type Prednisone elevated liver functions Non Drug Allerg y Sulfasalazine stomach upset Non Drug Allergy Simvastatin elevated liver enzymes Non Drug Allergy Celebrex increased blood pressure Non Drug Allerg y Methotrexate not tolerated Non Drug Allergy Problems Problem Type Condition Code Onset Dates Condition Statu s Problem Vitamin D deficiency E55.9 Active Problem Primary osteoarthritis involving multiple joints M15.0 Active Problem Shortness of breath R06.02 Active Problem Opiate use F11.90 Active Assessment Other aircraft pneudraulics repairer (current) drug therapy Z79.899 Active Problem Immunocompromised state D89.9 Acti ve Assessment Abnormal kidney function study R94.4 Active Problem Other chronic pain G89.29 Active Problem Ankle pain, right M25.571 Active Problem Pain in right knee M25.561 Active Problem Liver function abnormality K76.89 A ctive Problem Osteoporosis M81.0 Active Assessment Ankle pain, right M25.571 Active Assessment senior living (current) use of opiate analgesic Z79.891 Active Assessment Rheumatoid arthritis with rh eumatoid factor of multiple sites without organ or systems involvement M05.79 Active Problem Posterior tibial tendinitis, right leg M76.821 Active Problem Myofascial pain M79.1 Active Problem Other aircraft pneudraulics repairer (current) drug therapy Z79.899 Active Problem Right foot pain M79.671 Active Problem Rheumatoid arthritis with rh eumatoid factor of multiple sites without organ or systems involvement M05.79 Active Problem Encounter for immunization Z23 A ctive Medications Medication Code System Code Instructions Start Date End Date Status Dosage Enbrel SureClick [facility] 66482420718 50 MG/ML Subcutaneous ev nicolas week December 26, 2019 Active 1 ml Vagifem [facility] 39824331597 10 MCG Vaginal twice a week Active 1 tablet Hydroxychloroquine Sulfate [facility] 63102199205 200 MG Orally Once a day January 15, 2020 Active 1 tablet Hydrocodone-Acetaminophen [facility] 76992619003 10-325 MG Orally BID D 2018 Active 1 tablet Valsartan-Hydrochlorothiazide [facility] 98699864090 160-12.5 MG Orally Once a day Active 1 tablet Protonix [facility] 15658899135 20 MG Orally Once a day Act marixa 1 tablet Vital Signs Date/Time: January 22, 2020 BMI 28.75 Index Weight 172.8 lbs Height 65 in Temperature 98.0 F Cardiac Monitoring Heart Rate 78 /min Blood Pressure Diastolic 80 mm Hg Blood Pressure Systolic 142 mm Hg Results Name Result Date Reference Range Unit Abnormali ty Flag COMPREHENSIVE METABOLIC PANEL W/EGFR ----CALCIUM 10.1 [id number] 8.6-10.4 mg/dL N ----CARBON DIOXIDE 28 65245531 20-32 mmol/L N ----ALT 46 35503603 6-29 U/L H ----CREATININE 0.94 33263431 0.50-0.99 mg/dL N ----AST 37 94448167 10-35 U/L H ----eGFR NON-AFR. [place] 65 19329953 > OR = 60 mL/min/1. 73m2 N ----ALKALINE PHOSPHATASE 195 69545322 37-153 U/L H ----eGFR 75 48373826 > OR = 60 mL/min/1.7 3m2 N ----BILIRUBIN, TOTAL 0.8 10921265 0.2-1.2 mg/dL N ----BUN/CREATININE RATIO NOT APPLICABLE 09523016 6-22 (calc) ----ALBUMIN/GLOBULIN RATIO 1.2 69807162 1.0-2.5 (calc) N ----SODIUM 140 17776386 135-146 mmol/L N ----GLOBULIN 3.4 13935261 1.9-3.7 g/dL (calc) N ----POTASSIUM 4.9 82989689 3.5-5.3 mmol/L N ----ALBUMIN 4.2 00585944 3.6-5.1 g/dL N ----GLUCOSE 113 44503304 65-99 mg/dL H ----CHLORIDE 101 73892597 98-110 mmol/L N ----UREA NITROGEN (BUN) 25 20200122 7-25 mg/dL N ----PROTEIN, TOTAL 7.6 20200122 6.1-8.1 g/dL N ZOLPIDEM, QUANTITATIVE, URINE ----ZOLPIDEM NEGATIVE 50967579 <5 ng/mL ----ZOLPIDEM METABOLITE NEGATIVE 63632546 <5 ng/mL PAIN MANAGEMENT PROFILE 1 W/CONF, W/DL, URINE ---- Hydrocodone 1388 11348071 <50 ng/mL H ----medMATCH Hydrocodone CONSISTENT 20200122 N ---- Hydromorphone 243 14682786 <50 ng/mL H ----medMATCH Hydromorphone CONSISTENT 20200122 N ----Oxycodone NEGATIVE 40770344 <100 ng/mL N ----Oxidant NEGATIVE 46722528 <200 mcg/mL N ----medMATCH Oxycodone CONSISTENT 20200122 N ----Amphetamines NEGATIVE 82797053 <500 ng/mL N ----Creatinine 181.9 75344181 > or = 20.0 mg/dL N ----pH 5.7 92381746 4.5-9.0 N ---- Morphine NEGATIVE 87031907 <50 ng/mL N ----medMATCH Morphine CONSISTENT 20200122 N ----Prescribed Drug 1 Hydrocodone 20200122 ---- Norhydrocodone 2745 06645488 <50 ng/mL H ----medMATCH Norhydrocodone CONSISTENT 36824140 N ----Barbiturates NEGATIVE 96924009 <300 ng/mL N ----medMATCH Amphetamines CONSISTENT 86807917 N ----Benzodiazepines NEGATIVE 49907435 <100 ng/mL N ----medMATCH Barbiturates CONSISTENT 69956907 N ----medMATCH Phencyclidine CONSISTENT 30863154 N ----Marijuana Metabolite NEGATIVE 31644494 <20 ng/mL N ----Phencyclidine NEGATIVE 10474784 <25 ng/mL N ----medMATCH Marijuana Metab CONSISTENT 65560417 N ----medMATCH Benzodiazepines CONSISTENT 59774694 N ----Methadone Metabolite NEGATIVE 58663708 <100 ng/mL N ----medMATCH Methadone Metab CONSISTENT 20200122 N ----Cocaine Metabolite NEGATIVE 20200122 <150 ng/mL N ----medMATCH Cocaine Metab CONSISTENT 20200122 N ----medMATCH Codeine CONSISTENT 20200122 N ----Opiates POSITIVE 97149186 <100 ng/mL A ---- Codeine NEGATIVE 23033838 <50 ng/mL N Summary Purpose eClinicalWorks Submission
--- OUTSIDE RECORDS SUMMARY | 2020-03-02 00:49 | XMS REPORT ---
Author Author APRIL Del Cid Organization eClinicalWorks Address Unknown Phone Unavailable Care Team Providers Care Refinery Operator Coking Name Role Phone Min Del Cid Unavailable Allergies No Known Allergies Problems Problem Type Condition Code Onset Dates Condition Statu s Assessment Osteoporosis M81.0 Active Assessment Liver function abnormality K76.89 A ctive Problem Rheumatoid arthritis with rh eumatoid factor of multiple sites without organ or systems involvement M05.79 Active Assessment Ankle pain, right M25.571 Active Problem Posterior tibial tendinitis, right leg M76.821 Active Assessment Pain in right knee M25.561 Active Problem Myofascial pain M79.1 Active Problem Encounter for immunization Z23 A ctive Problem Right foot pain M79.671 Active Problem Osteoporosis M81.0 Active Problem Ankle pain, right M25.571 Active Assessment Vitamin D deficiency E55.9 Active Assessment Shortness of breath R06.02 Active Problem Liver function abnormality K76.89 A ctive Assessment Primary osteoarthritis involving multiple joints M15.0 Active Problem Shortness of breath R06.02 Active Problem Vitamin D deficiency E55.9 Active Problem Pain in right knee M25.561 Active Problem Primary osteoarthritis involving multiple joints M15.0 Active Assessment Myofascial pain M79.1 Active Assessment Posterior tibial tendinitis, right leg M76.821 Active Assessment Encounter for immunization Z23 A ctive Assessment Right foot pain M79.671 Active Problem Other manager intermediate (current) drug therapy Z79.899 Active Assessment Other manager intermediate (current) drug therapy Z79.899 Active Assessment Rheumatoid arthritis with rh eumatoid factor of multiple sites without organ or systems involvement M05.79 Active Medications No Known Medications Results No Known Results Summary Purpose eClinicalWorks Submission
--- OUTSIDE RECORDS SUMMARY | 2020-03-02 00:49 | XMS REPORT ---
Author Author APRIL Del Cid Organization eClinicalWorks Address Unknown Phone Unavailable Care Team Providers Care Metal Tank Builder Name Role Phone Min Del Cid CP [...] K76.89 A ctive Problem Osteoporosis M81.0 Active Problem Posterior tibial tendinitis, right leg M76.821 Active Problem Myofascial pain M79.1 Active Problem Other [facility] (current) drug therapy Z79.899 Active Problem Right foot pain M79.671 Active Problem Rheumatoid arthritis with rh eumatoid factor of multiple sites without organ or systems involvement M05.79 Active Problem Encounter for immunization Z23 A ctive Medications Medication Code System Code Instructions Start Date End Date Status Dosage Enbrel SureClick [facility] 09063479015 50 MG/ML Subcutaneous ev nicolas week December 26, 2019 Active 1 ml Results No Known Results Summary Purpose eClinicalWorks Submission
--- OUTSIDE RECORDS SUMMARY | 2020-03-02 00:49 | XMS REPORT ---
Author Author APRIL Zelaya [facility] eClinicalWorks Address Unknown Phone Unavailable Care Team Providers Care Sound Controller Name Role Phone Juliette Zelaya Unavailable Allergies No Known Allergies Problems Problem Type Condition Code Onset Dates Condition Statu s Problem Rheumatoid arthritis with rh eumatoid factor of multiple sites without organ or systems involvement M05.79 Active Problem Myofascial pain M79.1 Active Problem Posterior tibial tendinitis, right leg M76.821 Active Assessment Rheumatoid arthritis with rh eumatoid factor of multiple sites without organ or systems involvement M05.79 Active Problem Other assisted (current) drug therapy Z79.899 Active Problem Primary osteoarthritis involving multiple joints M15.0 Active Problem Shortness of breath R06.02 Active Problem Pain in right knee M25.561 Active Problem Right foot pain M79.671 Active Problem Osteopenia M85.80 Active Problem Vitamin D deficiency E55.9 Active Problem Encounter for immunization Z23 A ctive Medications Medication Code System Code Instructions Start Date End Date Status Dosage Hydroxychloroquine Sulfate [facility] 77878779619 200 MG Orally Twice a day Active 1 tablet Results No Known Results Summary Purpose eClinicalWorks Submission
--- OUTSIDE RECORDS SUMMARY | 2020-03-02 00:49 | XMS REPORT ---
Author APRIL [facility] eClinicalWorks Address Unknown Phone Unavailable Care Team Providers Care Physicist Astrophysics Name Role Phone Min Del Cid CP [...] or systems involvement M05.79 Active Problem Other detention (current) drug therapy Z79.899 Active Problem Shortness of breath R06.02 Active Problem Vitamin D deficiency E55.9 Active Problem Primary osteoarthritis involving multiple joints M15.0 Active Problem Myofascial pain M79.1 Active Problem Osteopenia M85.80 Active Problem Encounter for immunization Z23 A ctive Problem Right foot pain M79.671 Active Assessment Other exterminator termite (current) drug therapy Z79.899 Active Assessment Primary osteoarthritis involving multiple joints M15.0 Active Assessment Rheumatoid arthritis with rh eumatoid factor of multiple sites without organ or systems involvement M05.79 Active Medications Medication Code System Code Instructions Start Date End Date Status Dosage Hydroxychloroquine Sulfate [facility] 55793851584 200 MG Once a day Active 1 tablet Vagifem [facility] 27072381061 10 MCG Vaginal twice a week Active 1 tablet Humira Pen [facility] 96358339794 40 MG/0.8ML Subcutaneous Every two weeks Active 0.8 ml Probiotic [facility] 08161799354 OTC Orally Once a day Acti ve as directed Hydrocodone-Acetaminophen [facility] [address]-95 500mg Orally PRN Active 1 tablet Valsartan-Hydrochlorothiazide [facility] 60634994744 160-12.5 MG Orally Once a day Active 1 tablet Pataday [facility] 23253117540 0.2 % Ophthalmic as needed A ctive as directed Omeprazole NDC 49293626973 20 MG Orally as needed Ac tive 1 capsule as needed PredniSONE [facility] 99499410400 5 MG Orally Once a day January 16, 2018 April 16, 2018 Active 2 tablets Vital Signs Date/Time: January 16, 2018 BMI 30.45 Index Weight 183 lbs Height 65 in Temperature 98.3 F Cardiac Monitoring Heart Rate 72 /min Blood Pressure Diastolic 90 mm Hg Blood Pressure Systolic 140 mm Hg Results No Known Results Summary Purpose eClinicalWorks Submission
--- OUTSIDE RECORDS SUMMARY | 2020-03-02 00:49 | XMS REPORT ---
Author Author APRIL Del Cid Organization eClinicalWorks Address Unknown Phone Unavailable Care Team Providers Care Industrial Organizational Psychologist Name Role Phone Min Del Cid CP [...] Problem Myofascial pain M79.1 Active Problem Other intermodal owner operator truck driver (current) drug therapy Z79.899 Active Problem Right foot pain M79.671 Active Problem Rheumatoid arthritis with rh eumatoid factor of multiple sites without organ or systems involvement M05.79 Active Problem Encounter for immunization Z23 A ctive Medications No Known Medications Results No Known Results Summary Purpose eClinicalWorks Submission
--- OUTSIDE RECORDS SUMMARY | 2020-03-02 00:49 | XMS REPORT ---
Author Author APRIL Del Cid Organization eClinicalWorks Address Unknown Phone Unavailable Care Team Providers Care Painter Helper Spray Name Role Phone Min Del Cid CP [...] Problem Myofascial pain M79.1 Active Problem Other installation manager (current) drug therapy Z79.899 Active Problem Right foot pain M79.671 Active Problem Rheumatoid arthritis with rh eumatoid factor of multiple sites without organ or systems involvement M05.79 Active Problem Encounter for immunization Z23 A ctive Medications No Known Medications Results No Known Results Summary Purpose eClinicalWorks Submission
--- OUTSIDE RECORDS SUMMARY | 2020-03-02 00:49 | XMS REPORT ---
Author Author APRIL Del Cid Organization eClinicalWorks Address Unknown Phone Unavailable Care Team Providers Care Assistant Controller Name Role Phone Min Del Cid CP Unavailable Allergies No Known Allergies Problems Problem Type Condition Code Onset Dates Condition Statu s Problem Posterior tibial tendinitis, right leg M76.821 Active Problem Myofascial pain M79.1 Active Problem Osteopenia M85.80 Active Problem Other extermination supervisor (current) drug therapy Z79.899 Active Problem Rheumatoid [...]
--- OUTSIDE RECORDS SUMMARY | 2020-03-02 00:49 | XMS REPORT ---
Author Author APRIL Del Cid Organization eClinicalWorks Address Unknown Phone Unavailable Care Team Providers Care Fitness Director Name Role Phone Min Del Cid CP Unavailable Allergies No Known Allergies Problems Problem Type Condition Code Onset Dates Condition Statu s Problem Posterior tibial tendinitis, right leg M76.821 Active Problem Rheumatoid arthritis with rh eumatoid factor of multiple sites without organ or systems involvement M05.79 Active Problem Other assisted (current) drug therapy Z79.899 Active Problem Shortness of breath R06.02 Active Problem Vitamin D deficiency E55.9 Active Problem Primary osteoarthritis involving multiple joints M15.0 Active Problem Myofascial pain M79.1 Active Problem Osteopenia M85.80 Active Problem Encounter for immunization Z23 A ctive Problem Right foot pain M79.671 Active Medications Medication Code System Code Instructions Start Date End Date Status Dosage [facility] 52700299844 10 MG Orally q am with food Oct 20, 2018 Active 2 tablets Results No Known Results Summary Purpose eClinicalWorks Submission
--- OUTSIDE RECORDS SUMMARY | 2020-03-02 00:49 | XMS REPORT ---
Author Author APRIL Del Cid Organization eClinicalWorks Address Unknown Phone Unavailable Care Team Providers Care Cloud Consultant Name Role Phone Min Del Cid CP Unavailable Allergies No Known Allergies Problems Problem Type Condition Code Onset Dates Condition Statu s Problem Posterior tibial tendinitis, right leg M76.821 Active Problem Rheumatoid arthritis with rh eumatoid factor of multiple sites without organ or systems involvement M05.79 Active Problem Other keno terminal operator (current) drug therapy Z79.899 Active Problem Shortness [...]
--- OUTSIDE RECORDS SUMMARY | 2020-03-02 00:49 | XMS REPORT ---
Author Author APRIL Harrell Organization eClinicalWorks Address Unknown Phone Unavailable Care Team Providers Care Sales Analytics Manager Name Role Phone Doreen Harrell CP Unavailable Allergies No Known Allergies Problems Problem Type Condition Code Onset Dates Condition Statu s Problem Posterior tibial tendinitis, right leg M76.821 Active Problem Rheumatoid arthritis with rh eumatoid factor of multiple sites without organ or systems involvement M05.79 Active Problem Other halfway (current) drug therapy Z79.899 Active Problem Shortness of breath R06.02 Active Problem Vitamin D deficiency E55.9 Active Problem Primary osteoarthritis involving multiple joints M15.0 Active Problem Myofascial pain M79.1 Active Problem Osteopenia M85.80 Active Problem Encounter for immunization Z23 A ctive Problem Right foot pain M79.671 Active Medications Medication Code System Code Instructions Start Date End Date Status Dosage Voltaren Gel NDC 0 1% Transdermal Four times a day January 05 019 Active apply to affected area Medrol Dose [place] NDC 45975531285 4mg Orally once a day January 05, 2019 Active as directed Results No Known Results Summary Purpose eClinicalWorks Submission
--- OUTSIDE RECORDS SUMMARY | 2020-03-02 00:49 | XMS REPORT ---
Author Author APRIL Harrell Organization eClinicalWorks Address Unknown Phone Unavailable Care Team Providers Care Environmental Manager Name Role Phone Doreen Harrell CP Unavailable Allergies No Known Allergies Problems Problem Type Condition Code Onset Dates Condition Statu s Problem Posterior tibial tendinitis, right leg M76.821 Active Problem Myofascial pain M79.1 Active Problem Osteopenia M85.80 Active Problem Other [facility] (current) drug therapy Z79.899 Active Problem Rheumatoid [...]
--- OUTSIDE RECORDS SUMMARY | 2020-03-02 00:49 | XMS REPORT ---
Author Author APRIL Del Cid Organization eClinicalWorks Address Unknown Phone Unavailable Care Team Providers Care Certified Ophthalmic Technician Name Role Phone Min Del Cid CP Unavailable Allergies No Known Allergies Problems Problem Type Condition Code Onset Dates Condition Statu s Problem Posterior tibial tendinitis, right leg M76.821 Active Problem Myofascial pain M79.1 Active Problem Osteopenia M85.80 Active Problem Other terminal worker (current) drug therapy Z79.899 Active Problem Rheumatoid [...]
--- OUTSIDE RECORDS SUMMARY | 2020-03-02 00:49 | XMS REPORT ---
Author Author APRIL Del Cid [facility] eClinicalWorks Address Unknown Phone Unavailable Care Team Providers Care Life Scientist Name Role Phone Min Del Cid CP Unavailable Allergies, Adverse Reactions, Alerts Substance Reaction Event Type Sulfasalazine stomach upset Non Drug Allergy Simvastatin [...] Active Problem Opiate use F11.90 Active Assessment Ankle pain, right M25.571 Active Problem Immunocompromised state D89.9 Acti ve Assessment Primary osteoarthritis involving multiple joints M15.0 Active Assessment Opiate use F11.90 Active Problem Other chronic pain G89.29 Active Problem Ankle pain, right M25.571 Active Problem Pain in right knee M25.561 Active Problem Liver function abnormality K76.89 A ctive Problem Osteoporosis M81.0 Active Assessment Rheumatoid arthritis with rh eumatoid factor of multiple sites without organ or systems involvement M05.79 Active Assessment Osteoporosis M81.0 Active Assessment Immunocompromised state D89.9 Acti ve Problem Posterior tibial tendinitis, right leg M76.821 Active Problem Myofascial pain M79.1 Active Problem Other shelter (current) drug therapy Z79.899 Active Problem Right foot pain M79.671 Active Assessment Other chronic pain G89.29 Active Problem Rheumatoid arthritis with rh eumatoid factor of multiple sites without organ or systems involvement M05.79 Active Problem Encounter for immunization Z23 A ctive Medications Medication Code System Code Instructions Start Date End Date Status Dosage Valsartan-Hydrochlorothiazide [facility] 91942629691 160-12.5 MG Orally Once a day Active 1 tablet Vagifem [facility] 53516763225 10 MCG Vaginal twice a week Active 1 tablet Enbrel SureClick [facility] 09772209331 50 MG/ML Subcutaneous every w [place] April 30, 2019 Active 1 ml Hydrocodone-Acetaminophen [facility] 15936608354 10-325 MG Orally BID D ec 2018 Active 1 tablet Protonix [facility] 37242852701 20 MG Orally Once a day Act marixa 1 tablet Vital Signs Date/Time: December 18, 2019 BMI 29.13 Index Weight 175.1 lbs Height 65 in Temperature 98.5 F Cardiac Monitoring Heart Rate 84 /min Blood Pressure Diastolic 76 mm Hg Blood Pressure Systolic 122 mm Hg Results No Known Results Summary Purpose eClinicalWorks Submission
--- OUTSIDE RECORDS SUMMARY | 2020-03-02 00:49 | XMS REPORT ---
Author APRIL [facility] eClinicalWorks Address Unknown Phone Unavailable Care Team Providers Care Head Of Sales Promotion Name Role Phone Min Del Cid CP [...] or systems involvement M05.79 Active Problem Other shelter (current) drug therapy Z79.899 Active Problem Shortness of breath R06.02 Active Problem Vitamin D deficiency E55.9 Active Problem Primary osteoarthritis involving multiple joints M15.0 Active Problem Myofascial pain M79.1 Active Problem Osteopenia M85.80 Active Problem Encounter for immunization Z23 A ctive Problem Right foot pain M79.671 Active Assessment Other watermaster (current) drug therapy Z79.899 Active Assessment Osteopenia M85.80 Active Assessment Primary osteoarthritis involving multiple joints M15.0 Active Assessment Myofascial pain M79.1 Active Assessment Rheumatoid arthritis with rh eumatoid factor of multiple sites without organ or systems involvement M05.79 Active Medications Medication Code System Code Instructions Start Date End Date Status Dosage Humira Pen [facility] 05330007972 40 MG/0.8ML Subcutaneous Every two weeks Active 0.8 ml Probiotic [facility] 12424071452 OTC Orally Once a day Acti ve as directed Pataday [facility] 82512623240 0.2 % Ophthalmic as needed A ctive as directed Valsartan-Hydrochlorothiazide [facility] 43510868715 160-12.5 MG Orally Once a day Active 1 tablet Hydrocodone-Acetaminophen [facility] [address]-06 500mg Orally PRN Active 1 tablet Omeprazole [facility] 64406867124 20 MG Orally as needed Ac tive 1 capsule as needed Hydroxychloroquine Sulfate [facility] 36524377104 200 MG Once a day Active 1 tablet Vagifem [facility] 17650526873 10 MCG Vaginal twice a week Active 1 tablet Vital Signs Date/Time: May 22, 2018 BMI 29.65 Index Weight 178.2 lbs Height 65 in Temperature 97.8 F Cardiac Monitoring Heart Rate 76 /min Blood Pressure Diastolic 80 mm Hg Blood Pressure Systolic 122 mm Hg Results No Known Results Summary Purpose eClinicalWorks Submission
--- OUTSIDE RECORDS SUMMARY | 2020-03-02 00:49 | XMS REPORT ---
Author Author APRIL Del Cid Organization eClinicalWorks Address Unknown Phone Unavailable Care Team Providers Care Steward/Stewardess Dining Room Name Role Phone Min Del Cid CP Unavailable Allergies No Known Allergies Problems Problem Type Condition Code Onset Dates Condition Statu s Problem Posterior tibial tendinitis, right leg M76.821 Active Problem Rheumatoid arthritis with rh eumatoid factor of multiple sites without organ or systems involvement M05.79 Active Problem Other intermediate manager (current) drug therapy Z79.899 Active Assessment Other intermediate manager (current) drug therapy Z79.899 Active Assessment Rheumatoid [...]
--- OUTSIDE RECORDS SUMMARY | 2020-03-02 00:49 | XMS REPORT ---
Author Author APRIL Harrell Organization eClinicalWorks Address Unknown Phone Unavailable Care Team Providers Care Pupil Personnel Worker Name Role Phone Doreen Harrell Unavailable Allergies No Known Allergies Problems Problem Type Condition Code Onset Dates Condition Statu s Problem Osteopenia M85.80 Active Problem Right foot pain M79.671 Active Problem Myofascial pain M79.1 Active Problem Ankle pain, right M25.571 Active Problem Pain in right knee M25.561 Active Problem Liver function abnormality K76.89 A ctive Problem Vitamin D deficiency E55.9 Active Problem Encounter for immunization Z23 A ctive Problem Primary osteoarthritis involving multiple joints M15.0 Active Problem Shortness of breath R06.02 Active Assessment Liver function abnormality K76.89 A ctive Problem Other custodial (current) drug therapy Z79.899 Active Assessment Other supervisor intermediates (current) drug therapy Z79.899 Active Problem Rheumatoid arthritis with rh eumatoid factor of multiple sites without organ or systems involvement M05.79 Active Assessment Rheumatoid arthritis with rh eumatoid factor of multiple sites without organ or systems involvement M05.79 Active Problem Posterior tibial tendinitis, right leg M76.821 Active Medications Medication Code System Code Instructions Start Date End Date Status Dosage PredniSONE [facility] 55233023814 5 MG Orally Once a day May 28, 2019 Active 2 tablets Results No Known Results Summary Purpose eClinicalWorks Submission
--- OUTSIDE RECORDS SUMMARY | 2020-03-02 00:49 | XMS REPORT ---
Author Author APRIL Del Cid Organization eClinicalWorks Address Unknown Phone Unavailable Care Team Providers Care Cop Breaker Name Role Phone Min Del Cid CP Unavailable Allergies No Known Allergies Problems Problem Type Condition Code Onset Dates Condition Statu s Problem Rheumatoid arthritis with rh eumatoid factor of multiple sites without organ or systems involvement M05.79 Active Problem Myofascial pain M79.1 Active Problem Posterior tibial tendinitis, right leg M76.821 Active Assessment Right knee meniscal tear S83.206A Act marixa Assessment Rheumatoid arthritis with rh eumatoid factor of multiple sites without organ or systems involvement M05.79 Active Problem Other superintendent marine oil terminal (current) drug therapy Z79.899 Active Problem Primary [...]
--- OUTSIDE RECORDS SUMMARY | 2020-03-02 00:50 | XMS REPORT ---
Author Author APRIL Del Cid Organization eClinicalWorks Address Unknown Phone Unavailable Care Team Providers Care Special Education Science Teacher Name Role Phone Min Del Cid CP Unavailable Allergies No Known Allergies Problems Problem Type Condition Code Onset Dates Condition Statu s Problem Posterior tibial tendinitis, right leg M76.821 Active Problem Rheumatoid arthritis with rh eumatoid factor of multiple sites without organ or systems involvement M05.79 Active Problem Other director of marketing [employer] (current) drug therapy Z79.899 Active Problem Shortness [...]
--- OUTSIDE RECORDS SUMMARY | 2020-03-02 00:50 | XMS REPORT ---
Author Author APRIL Del Cid Organization eClinicalWorks Address Unknown Phone Unavailable Care Team Providers Care Engraver Hand Soft Metals Name Role Phone Min Del Cid CP [...] Problem Myofascial pain M79.1 Active Problem Other intermediate accountant (current) drug therapy Z79.899 Active Problem Right foot pain M79.671 Active Problem Rheumatoid arthritis with rh eumatoid factor of multiple sites without organ or systems involvement M05.79 Active Problem Encounter for immunization Z23 A ctive Medications Medication Code System Code Instructions Start Date End Date Status Dosage PredniSONE [facility] 90548723067 1 MG Orally Once a day May 28, 2019 Active 5 tablets Results No Known Results Summary Purpose eClinicalWorks Submission
--- OUTSIDE RECORDS SUMMARY | 2020-03-02 00:50 | XMS REPORT ---
Author Author APRIL Del Cid Organization eClinicalWorks Address Unknown Phone Unavailable Care Team Providers Care Well Flow Operator Name Role Phone Min Del Cid CP Unavailable Allergies No Known Allergies Problems Problem Type Condition Code Onset Dates Condition Statu s Problem Myofascial pain M79.1 Active Problem Encounter for immunization Z23 A ctive Problem Right foot pain M79.671 Active Problem Other snf (current) drug therapy Z79.899 Active Problem Rheumatoid [...]
--- OUTSIDE RECORDS SUMMARY | 2020-03-02 00:50 | XMS REPORT ---
Author Author APRIL Harrell Organization eClinicalWorks Address Unknown Phone Unavailable Care Team Providers Care Human Resource Internship Name Role Phone Doreen Harrell CP Unavailable Allergies No Known Allergies Problems Problem Type Condition Code Onset Dates Condition Statu s Problem Posterior tibial tendinitis, right leg M76.821 Active Problem Myofascial pain M79.1 Active Problem Osteopenia M85.80 Active Problem Other senior care (current) drug therapy Z79.899 Active Problem Rheumatoid [...] Instructions Start Date End Date Status Dosage Luanbrel [facility] 39566784555 50 MG/ML Subcutaneous every w [place] April 30, 2019 Active 1 ml Results No Known Results Summary Purpose eClinicalWorks Submission
--- OUTSIDE RECORDS SUMMARY | 2020-03-02 00:50 | XMS REPORT ---
Author Author APRIL Del Cid Organization eClinicalWorks Address Unknown Phone Unavailable Care Team Providers Care Middle School Football Coach Name Role Phone Min Del Cid CP [...]
--- OUTSIDE RECORDS SUMMARY | 2020-03-02 00:50 | XMS REPORT ---
Author Author APRIL Del Cid Organization eClinicalWorks Address Unknown Phone Unavailable Care Team Providers Care Technical Support Assistant Name Role Phone Min Del Cid CP Unavailable Allergies No Known Allergies Problems Problem Type Condition Code Onset Dates Condition Statu s Problem Myofascial pain M79.1 Active Problem Encounter for immunization Z23 A ctive Problem Right foot pain M79.671 Active Problem Other [facility] (current) drug therapy Z79.899 Active Problem Rheumatoid [...] Instructions Start Date End Date Status Dosage Prolia [facility] 21829631752 60 MG/ML Subcutaneous Q 6 MONTHS Sep 17, 201 9 Active as directed Results No Known Results Summary Purpose eClinicalWorks Submission
--- OUTSIDE RECORDS SUMMARY | 2020-03-02 00:50 | XMS REPORT ---
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
--- OUTSIDE RECORDS SUMMARY | 2020-03-02 00:50 | XMS REPORT ---
Author Author APRIL Del Cid [facility] [employer] Address Unknown Phone Unavailable Care Team Providers Care Parachute Cushion Installer Name Role Phone Min Del Cid CP Unavailable Allergies, Adverse Reactions, Alerts Substance Reaction Event Type Prednisone elevated liver functions Non Drug Allerg y Methotrexate not tolerated Non Drug Allergy Simvastatin elevated liver enzymes Non Drug Allergy Celebrex increased blood pressure Non Drug Allerg y Problems Problem Type Condition Code Onset Dates Condition Statu s Problem Posterior tibial tendinitis, right leg M76.821 Active Problem Rheumatoid arthritis with rh eumatoid factor of multiple sites without organ or systems involvement M05.79 Active Problem Other custodial (current) drug therapy Z79.899 Active Problem Shortness of breath R06.02 Active Problem Vitamin D deficiency E55.9 Active Problem Primary osteoarthritis involving multiple joints M15.0 Active Problem Myofascial pain M79.1 Active Problem Osteopenia M85.80 Active Problem Encounter for immunization Z23 A ctive Problem Right foot pain M79.671 Active Assessment Primary osteoarthritis involving multiple joints M15.0 Active Assessment Osteopenia M85.80 Active Assessment Rheumatoid arthritis with rh eumatoid factor of multiple sites without organ or systems involvement M05.79 Active Assessment Other custodial (current) drug therapy Z79.899 Active Medications Medication Code System Code Instructions Start Date End Date Status Dosage Pataday [facility] 83741560429 0.2 % Ophthalmic as needed A ctive as directed Humira Pen [facility] [address]-01 40 MG/0.8ML Subcutaneous Every two weeks Active 0.8 ml Hydrocodone-Acetaminophen [facility] 24801932744 5-325 MG Orally BID Active 1 tablet Valsartan-Hydrochlorothiazide [facility] 87688170556 160-12.5 MG Orally Once a day Active 1 tablet Vagifem [facility] 02416381244 10 MCG Vaginal twice a week Active 1 tablet Hydroxychloroquine Sulfate [facility] 50249445128 200 MG Once a day Active 1 tablet Probiotic [facility] 19331537070 OTC Orally Once a day Acti ve as directed Medrol Dose [place] [facility] 89303343999 4mg Orally as directed Sep 21, 2018 Sep 27, 2018 Active as directed Omeprazole [facility] 46676519074 20 MG Orally as needed Ac tive 1 capsule as needed Vital Signs Date/Time: Sep 21, 2018 BMI 30.58 Index Weight 183.8 lbs Height 65 in Temperature 97.8 F Cardiac Monitoring Heart Rate 72 /min Blood Pressure Diastolic 70 mm Hg Blood Pressure Systolic 138 mm Hg Results No Known Results Summary Purpose [employer] Submission
--- OUTSIDE RECORDS SUMMARY | 2020-03-02 00:50 | XMS REPORT ---
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 Name Role Phone Asked, Pcp No PCP Unavailable Lillian PATEL, Luis Harper Attphys [phone] Payers Payer Name Policy Type Policy Number Effective Date Expiration Date S our BCBSBCBS CHOICE PPO/FEDERAL EMPL [id number] xxxxxxxxxxxx 2009 00:00:00 Trevino Zoroastrian Problems Condition Name Condition Details Condition Category Status Onset Date Resolution Date Last Treatment Date Treating Clinician Comments Source Posterior tibial tendinitis, right leg Posterior tibial tendinitis, right leg Active Problem 02/23/2020 Chapo Del Cid Problem Active 2020-02-23 02:47:34 Chapo Del Cid Rheumatoid arthritis with rheumatoid fac tor of multiple sites without organ or systems involvement Rheumatoid arthr itis with rheumatoid factor of multiple sites without organ or systems involvement Active Problem 02/23/2020 Chapo Del Cid Problem Active 2020-02-23 02:47:34 Chapo Del Cid Other intermediate (current) drug therapy Other long term acute care registered nurse (current) drug therapy Active Problem 02/23/2020 Chapo Del Cid Problem Ac tive 2020-02-23 02:47:34 Chapo May sahil Shortness of breath Shor tness of breath Active Problem 02/23/2020 Chapo Del Cid Problem Active 2020-02-23 02:47:34 Chapo Del Cid Vitamin D deficiency Erika min D deficiency Active Problem 02/23/2020 Chapo Del Cid Problem Active 2020-02-23 02:47:34 Chapo Del Cid 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 Active Problem 02/23/2020 Chapo Del Cid Problem Active 2020-02-23 02:47:34 Chapo Del Cid Myofascial pain Myof ascial pain Active Problem 02/23/2020 Chapo Del Cid Problem Active 2020-02-23 02:47:34 Chapo Del Cid Osteopenia Oste openia Active Problem 07/11/2019 Chapo Del Cid Problem Active 2019-07-11 02:47:29 Chapo Del Cid Encounter for immunization Enc ounter for immunization Active Problem 02/23/2020 Chapo Del Cid Problem Active 2020-02-23 02:47:34 Chapo Del Cid Right foot pain Righ t foot pain Active Problem 02/23/2020 Chapo Del Cid Problem Active 2020-02-23 02:47:34 Chapo Del Cid Osteoporosis Oste oporosis Active Problem 02/23/2020 Chapo Del Cid Problem Active 2020-02-23 02:47:34 Chapo Del Cid Ankle pain, right Ankl e pain, right Active Problem 02/23/2020 Chapo Del Cid Problem Active 2020-02-23 02:47:34 Chapo Del Cid Liver function abnormality Debbie er function abnormality Active Problem 02/23/2020 Chapo Del Cid Problem Active 2020-02-23 02:47:34 Chapo Del Cid Pain in right knee Pain in right knee Active Problem 02/23/2020 Chapo Del Cid Problem Active 2020-02-23 02:47:34 Chapo Del Cid Elevated LFTs Elev ated LFTs Active Diagnosis 05/10/2019 Chapo Del Cid Diagnosis Active 2019-05-10 02:45:49 Chapo Del Cid Elevated liver enzymes Elev ated liver enzymes Active Diagnosis 05/10/2019 Chapo Del Cid Diagnosis Active 2019-05-10 02:45:49 Chapo Del Cid Right knee meniscal tear Righ t knee meniscal tear Active Diagnosis 01/23/2019 Chapo Del Cid Diagnosis Active 2019-01-23 02:46:35 Chapo Del Cid Elevated liver function tests Elevated liver function tests Active Diagnosis 04/28/2019 Chapo Del Cid Diagnosis Active 2019-04-28 02:45:35 Chapo Del Cid Opiate use Opia te use Active Problem 02/23/2020 Chapo Del Cid Problem Active 2020-02-23 02:47:34 Chapo Del Cid Immunocompromised state Immu nocompromised state Active Problem 02/23/2020 Chapo Del Cid Problem Active 2020-02-23 02 :47:34 Chapo Del Cid Other chronic pain Othe r chronic pain Active Problem 02/23/2020 Chapo Del Cid Problem Active 2020-02-23 02:47:34 Chapo Del Cid Abnormal kidney function study Abnormal kidney function study Active Diagnosis 02/08/2020 Chapo Del Cid Diagnosis Active 2020-02-08 02:46:18 Chapo Del Cid 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 No Known Contrast Allergies DA Active U 2007-04-02 00:00: 00 [facility] No Known Drug Allergies DA Active U 2007-04-02 00:00:00 [facility] No Known Food Allergies DA Active U 2007-04-02 00:00:00 [facility] No Known Other Allergies DA Active U 2007-04-02 00:00:00 [facility] Social History Social Habit Start Date Stop Date Quantity Comments Source Sex Assigned At Lissette bautista Zoroastrian Alcohol intake 2019-07-06 00:00:00 2019-07-06 00:00:00 Current non-drinker of alcohol (finding) Uriel Suarez Smoking Status Start Date Stop Date Source Never smoker Uriel harris Medications Ordered Medication Name Filled Medication Name Start Date Stop Da te Current Medication? Ordering Clinician Indication Dosage Frequency Signature (SIG) Comments Components Source Vagifem 2020-02-08 02:46:18 Yes Lulu Reyes 1 t ablet [facility]o Del Cid Valsartan-Hydrochlorothiazide 2020-02-08 02:46:18 Yes Henry Reyes 1 tablet Chapo Del Cid Protonix 2020-02-08 02:46:18 Yes Lulu Reyes 1 tablet [facility]o Del Cid Hydroxychloroquine Sulfate 2020-01-15 00:00:00 Yes Thor Reyes 1 tablet Chapo Del Cid Enbrel SureClick 2019-12-26 00:00:00 Yes Lulu Reyes 1 ml Chapolarry Del Cid Probiotic 2019-11-17 03:46:50 Yes Lulu rojas s directed Chapolarry Del Cid Hydrocodone-Acetaminophen 2019-10-09 00:00:00 Yes Lulu Reyes 1 tablet Chapo Del Cid Hydrocodone-Acetaminophen 2019-10-09 00:00:00 Yes Lulu eRyes 1 tablet [facility]o Del Cid Hydroxychloroquine Sulfate 2019-09-19 00:00:00 Yes Rebekah Del Cid 1 tablet [facility]o Del Cid Prolia 2019-09-17 00:00:00 Yes Lulu alfonso d irected Chapo Mayer PredniSONE 2019-09-14 00:00:00 Yes Lulu Eric 1 tablet Chapo Del Cid omeprazole (PriLOSEC) 20 MG capsule 2019-07-06 09:47:18 Yes 20mg QD Take 20 mg by mouth daily. Uriel Suarez hydroxychloroquine (PLAQUENIL) 200 mg tablet 2019-07-06 09:47:18 Yes 200mg QD Take 200 mg by mouth daily. Uriel Suarez amoxicillin (AMOXIL) 500 MG capsule 2019-07-06 09:47:18 Yes 500mg Q.5D Take 500 mg by mouth 2 (two) times a day. Uriel Suarez valsartan-hydrochlorothiazide (DIOVAN-HCT) 160-12.5 mg per t ablet 2019-07-06 09:47:18 Yes 1{tbl} QD Take 1 tablet by mouth daily. Uriel Suarez pantoprazole (PROTONIX) 40 MG EC tablet 2019-07-06 09:47:18 Yes 40mg QD Take 40 mg by mouth daily. Uriel gamboa HYDROcodone-acetaminophen (NORCO) 5-325 mg per tablet 2019-07-06 09:47:18 Yes acute pain 1{tbl} Q6H Take 1 tablet b y mouth every 6 (six) hours as needed for moderate pain .Acute Pain. Uriel alvarez naproxen sodium (ALEVE) 220 mg capsule 2019-07-06 09:47:18 Yes Take by mouth. Uriel Suarez etanercept (ENBREL) 50 mg/mL (0.98 mL) injection 2019-07-06 09:47:18 Yes 50mg Q7D Inject 50 mg under the skin once a week. Trevino Zoroastrian predniSONE (DELTASONE) 10 mg tablet 2019-07-06 09:47:18 Yes 10mg QD Take 10 mg by mouth daily. Uriel Suarez Hydrocodone-Acetaminophen 2019-07-06 02:45:14 Yes Wajeeh a Julio Cesar 1 tablet [facility]id Hydroxychloroquine Sulfate 2019-07-06 02:45:14 Yes Wajee escobedo Julio Cesar 1 tablet [facility] Cid Sulfasalazine 2019-06-26 00:00:00 Yes Wajeeha Julio Cesar 3 tabs [facility] Cid PredniSONE 2019-05-28 00:00:00 Yes Wajeeha Julio Cesar 2 tablets [facility]o Del Cid PredniSONE 2019-05-28 00:00:00 Yes Min Del Cid 5 tablets Chapo Del Cid Enbrel SureClick 2019-04-30 00:00:00 Yes Min Del Cid 1 ml [facility]o Del Cid PredniSONE 2019-04-22 00:00:00 Yes Wajeeha Julio Cesar 1 tablet Chapo Del Cid Medrol Dose [place] 2019-04-17 00:00:00 Yes Wajeeha Julio Cesar as directed [facility]o Del Cid Hydroxychloroquine Sulfate 2019-03-17 02:47:32 Yes Wajee escobedo Julio Cesar 1 tablet [facility]o Del Cid Omeprazole 2019-03-17 02:47:32 Yes Wajeeha Julio Cesar 1 capsule as needed [facility]o Del Cid Pataday 2019-03-17 02:47:32 Yes Wajeeha Julio Cesar as directed [facility]o Del Cid Humira Pen 2019-02-12 00:00:00 Yes Min Del Cid 0.8 ml Chapo Del Cid Voltaren Gel 2019-01-05 00:00:00 Yes Wajeeha Julio Cesar apply to affected area Chapo Del Cdi Medrol Dose [place] 2019-01-05 00:00:00 Yes Wajeeha Julio Cesar as directed [facility]o Del Cid Humira Pen 2018-12-16 03:47:00 Yes Juliette Zelaya 0.8 ml [facility] Cid PredniSONE 2018-12-16 03:47:00 Yes Juliette Zelaya 1 tablet [facility]o Del Cid PredniSONE 2018-10-20 00:00:00 Yes Min Del Cid 2 tablets Chapo Del Cid Medrol 2018-10-12 00:00:00 Yes Juliette Zelaya 2 tablets with food or milk in the morning Chapo Del Cid Humira Pen 2018-10-07 03:46:52 Yes Min Del Cid 0.8 ml Chapo Del Cid Medrol Dose [place] 2018-09-21 00:00:00 Yes Min Del Cid as directed [facility]o Del Cid Hydroxychloroquine Sulfate 2018-09-05 00:00:00 Yes Phili p Del Cid 1 Tablet [facility]o Del Cid Hydrocodone-Acetaminophen 2018-05-24 02:48:00 Yes Min Del Cid 1 tablet Chapo Del Cid PredniSONE 2018-01-16 00:00:00 Yes Min Del Cid 2 tablets Chapo Del Cid Calcium 500 + D 2017-09-23 03:46:09 Yes Min Del Cid 1 tablet with food Chapo Del Cid Hydrocodone-Acetaminophen 2017-09-23 03:46:09 Yes Min Del Cid 1 tablet [facility]o Del Cid Vital Signs Vital Name Observation Time Observation Value Comments Source Weight 2020-01-22 13:45:00 Chapo Del Cid Height 2020-01-22 13:45:00 Chapo Del Cid Temperature Oral (F) 2020-01-22 13:45:00 98.0 F Chapo Del Cid Heart Rate 2020-01-22 13:45:00 Chapo Del Cid Diastolic (mm Hg) 2020-01-22 13:45:00 Phi llip Del Cid Systolic (mm Hg) 2020-01-22 13:45:00 Jean Paul lip Del Cid Weight 2019-12-18 19:15:00 Chapo Del Cid Height 2019-12-18 19:15:00 Chapo Del Cid Temperature Oral (F) 2019-12-18 19:15:00 98.5 F Chapo Del Cid Heart Rate 2019-12-18 19:15:00 Chapo Del Cid Diastolic (mm Hg) 2019-12-18 19:15:00 Phi llip Del Cid Systolic (mm Hg) 2019-12-18 19:15:00 Jean Paul lip Del Cid Weight 2019-11-13 21:15:00 Chapo Del Cid Height 2019-11-13 21:15:00 Chapo Del Cid Temperature Oral (F) 2019-11-13 21:15:00 98.8 F Chapo Del Cid Heart Rate 2019-11-13 21:15:00 Chapo Del Cid Diastolic (mm Hg) 2019-11-13 21:15:00 Phi llip Del Cid Systolic (mm Hg) 2019-11-13 21:15:00 Jean Paul lip Del Cid Body height 2019-07-06 09:45:00 166.4 cm Trevino Zoroastrian Body weight 2019-07-06 09:45:00 76.204 kg [place] Zoroastrian BMI 2019-07-06 09:45:00 27.53 kg/m2 Trevino Zoroastrian Weight 2019-06-26 13:15:00 Chapo Del Cid Height 2019-06-26 13:15:00 Chapo Del Cid Temperature Oral (F) 2019-06-26 13:15:00 99.2 F Chapo Del Cid Heart Rate 2019-06-26 13:15:00 Chapo Del Cid Diastolic (mm Hg) 2019-06-26 13:15:00 Phi llip Del Cid Systolic (mm Hg) 2019-06-26 13:15:00 Jean Paul lip Del Cid Weight 2019-03-15 18:30:00 Chapo Del Cid Height 2019-03-15 18:30:00 Chapo Del Cid Temperature Oral (F) 2019-03-15 18:30:00 98.2 F Chapo Del Cid Heart Rate 2019-03-15 18:30:00 Chapo Del Cid Diastolic (mm Hg) 2019-03-15 18:30:00 Phi llip Del Cid Systolic (mm Hg) 2019-03-15 18:30:00 Jean Paul lip Del Cid Weight 2018-12-11 20:45:00 Chapo Del Cid Height 2018-12-11 20:45:00 Chapo Del Cid Temperature Oral (F) 2018-12-11 20:45:00 98.1 F Chapo Del Cid Heart Rate 2018-12-11 20:45:00 Chapo Del Cid Diastolic (mm Hg) 2018-12-11 20:45:00 Phi llip Del Cid Systolic (mm Hg) 2018-12-11 20:45:00 Jean Paul lip Del Cid Weight 2018-11-02 14:15:00 Chapo Del Cid Height 2018-11-02 14:15:00 Chapo Del Cid Temperature Oral (F) 2018-11-02 14:15:00 97.3 F Chapo Del Cid Heart Rate 2018-11-02 14:15:00 Chapo Del Cid Diastolic (mm Hg) 2018-11-02 14:15:00 Phi llip Del Cid Systolic (mm Hg) 2018-11-02 14:15:00 Jean Paul lip Del Cid Weight 2018-09-21 16:45:00 Chapo Del Cid Height 2018-09-21 16:45:00 Chapo Del Cid Temperature Oral (F) 2018-09-21 16:45:00 97.8 F Chapo Del Cid Heart Rate 2018-09-21 16:45:00 Chapo Del Cid Diastolic (mm Hg) 2018-09-21 16:45:00 Phi llip Del Cid Systolic (mm Hg) 2018-09-21 16:45:00 Jean Paul lip Del Cid Weight 2018-05-22 15:30:00 Chapo Del Cid Height 2018-05-22 15:30:00 Chapo Del Cid Temperature Oral (F) 2018-05-22 15:30:00 97.8 F Chapo Del Cid Heart Rate 2018-05-22 15:30:00 Chapo Del Cid Diastolic (mm Hg) 2018-05-22 15:30:00 Phi llip Del Cid Systolic (mm Hg) 2018-05-22 15:30:00 Jean Paul lip Del Cid Weight 2018-01-16 15:30:00 Chapo Del Cid Height 2018-01-16 15:30:00 Chapo Del Cid Temperature Oral (F) 2018-01-16 15:30:00 98.3 F Chapo Del Cid Heart Rate 2018-01-16 15:30:00 Chapo Del Cid Diastolic (mm Hg) 2018-01-16 15:30:00 Phi llip Del Cid Systolic (mm Hg) 2018-01-16 15:30:00 Jean Paul lip Del Cid Weight 2017-09-15 16:30:00 Chapo Del Cid Height 2017-09-15 16:30:00 Chapo Del Cid Temperature Oral (F) 2017-09-15 16:30:00 97.6 F Chapo Del Cid Heart Rate 2017-09-15 16:30:00 Chapo Del Cid Diastolic (mm Hg) 2017-09-15 16:30:00 Phi llip Del Cid Systolic (mm Hg) 2017-09-15 16:30:00 Jean Paul lip Del Cid Procedures Procedure Date / Time Performed Performing Clinician [facility] e XR KNEE 4+ VW RIGHT 2019-07-06 10:20:56 Leroy Snyder MD ARTHROCENTESIS ASPIR&/INJ MAJOR JT/BURSA W/O US 2019-06-11 7 09:45:00 Leroy Snyder Plan of Care Planned Activity Planned Date Details Comments Source Future Scheduled Test 2020-05-10 00:00:00 INFLUENZA VACCINE [code = INFLUENZA VACCINE] [facility] Future Scheduled Test 2006 00:00:00 BREAST CANCER SCRE ENING [code = BREAST CANCER SCREENING] [facility] Future Scheduled Test 2006 00:00:00 COLONOSCOPY SCREEN ING [code = COLONOSCOPY SCREENING] [facility] Future Scheduled Test 2006 00:00:00 SHINGLES VACCINES (#1) [code = SHINGLES VACCINES (#1)] [facility] Future Scheduled Test 1977 00:00:00 Screening for jasbir gnant neoplasm of cervix (procedure) [code = 770049587] [facility] Encounters Start Date/Time End Date/Time Encounter Type Admission Type Attendi [facility] Care Department Encounter ID Source 2020-03-02 00:49:56 Outpatient MHIEALT MHIEALT [id number] [facility] 2020-02-22 14:13:00 2020-02-22 14:13:00 Outpatient Min Del Cid MD PA [id number] Chapo Del Cid MD 2020-02-08 14:23:00 2020-02-08 14:23:00 Outpatient Min RUIZ [id number] Chapo Del Cid MD 2020-01-22 08:45:00 2020-01-22 08:45:00 Outpatient Min RUIZ [id number] Chapo Del Cid MD 2020-01-21 14:48:00 2020-01-21 14:48:00 Outpatient Min RUIZ [id number] RYLIE Del Cid MD 2020-01-15 11:54:00 2020-01-15 11:54:00 Outpatient Min Del Cid MD PA [id number] Chapo Del Cid MD 2020-01-15 08:44:00 2020-01-15 08:44:00 Outpatient Min Del Cid MD PA [id number] Chapo Del Cid MD 2020-01-14 14:13:00 2020-01-14 14:13:00 Outpatient Min Del Cid MD PA [id number] Chapo Del Cid MD 2019-12-26 13:23:00 2019-12-26 13:23:00 Outpatient Min Del Cid MD PA [id number] Chapo Del Cid MD 2019-12-18 16:00:00 2019-12-18 16:00:00 Outpatient Min Del Cid MD PA [id number] Chapo Del Cid MD 2019-12-18 14:15:00 2019-12-18 14:15:00 Outpatient Min Del Cid MD PA [id number] Chapo Del Cid MD 2019-12-05 15:28:00 2019-12-05 15:28:00 Outpatient Min Del Cid MD PA [id number] Chapo Del Cid MD 2019-11-19 10:09:00 2019-11-19 10:09:00 Outpatient MD JOSEPH Mattson MD PA [id number] Chapo Del Cid MD 2019-11-13 15:15:00 2019-11-13 15:15:00 Outpatient Min Del Cid MD PA [id number] Chapo Del Cid MD 2019-11-08 08:15:00 2019-11-08 08:15:00 Outpatient MD JOSEPH Mattson MD PA [id number] Chapo Del Cid MD 2019-10-17 10:13:00 2019-10-17 10:13:00 Outpatient Min Del Cid MD PA [id number] Chapo Del Cid MD 2019-10-09 12:39:00 2019-10-09 12:39:00 Outpatient MD JOSEPH Mattson MD PA [id number] Chapo Del Cid MD 2019-10-09 11:57:00 2019-10-09 11:57:00 Outpatient MD JOSEPH Mattson MD PA [id number] Chapo Del Cid MD 2019-10-05 09:18:00 2019-10-05 09:18:00 Outpatient MD JOSEPH Mattson MD PA [id number] Chapo Del Cid MD 2019-10-04 15:19:00 2019-10-04 15:19:00 Outpatient MD JOSEPH Mattson MD PA [id number] Chapo Del Cid MD 2019-10-04 09:45:00 2019-10-04 09:45:00 Outpatient MD JOSEPH Mattson MD PA [id number] hCapo Del Cid MD 2019-09-27 15:45:00 2019-09-27 15:45:00 Outpatient Min Del Cid MD PA [id number] Chapo Del Cid MD 2019-09-14 11:47:00 2019-09-14 11:47:00 Outpatient MD JOSEPH Mattson MD PA [id number] Chapo Del Cid MD 2019-09-14 11:02:00 2019-09-14 11:02:00 Outpatient Mni Del Cid MD PA [id number] Chapo Del Cid MD 2019-08-29 09:40:00 2019-08-29 09:40:00 Outpatient MD JOSEPH Mattson MD PA [id number] Chapo Del Cid MD 2019-08-29 09:05:00 2019-08-29 09:05:00 Outpatient Min Del Cid MD PA [id number] RYLIE Del Cid MD 2019-07-06 15:09:00 2019-07-06 15:09:00 Outpatient MD JOSEPH Mattson MD PA [id number] Chapo Del Cid MD 2019-07-05 11:19:00 2019-07-05 11:19:00 Outpatient MD JOSEPH Harden MD PA [id number] Chapo Del Cid MD 2019-07-02 09:46:00 2019-07-02 09:46:00 Outpatient Min Del Cid MD PA [id number] Chapo Del Cid MD 2019-06-29 09:32:00 2019-06-29 09:32:00 Outpatient Min RUIZ [id number] Chapo Del Cid MD 2019-06-26 08:15:00 2019-06-26 08:15:00 Outpatient Min Del Cid MD PA [id number] Chapo Del Cid MD 2019-05-30 13:22:00 2019-05-30 13:22:00 Outpatient Min Del Cid MD PA [id number] Chapo Del Cid MD 2019-05-28 08:40:00 2019-05-28 08:40:00 Outpatient Min Del Cid MD PA [id number] Chapo Del Cid MD 2019-05-25 10:46:00 2019-05-25 10:46:00 Outpatient Min RUIZ [id number] Chapo Del Cid MD 2019-05-22 09:20:00 2019-05-22 09:20:00 Outpatient Min Del Cid MD PA [id number] Chapo Del Cid MD 2019-05-09 09:03:00 2019-05-09 09:03:00 Outpatient Min RUIZ [id number] Chapo Del Cid MD 2019-05-04 08:51:00 2019-05-04 08:51:00 Outpatient Min RUIZ [id number] Chapo Del Cid MD 2019-04-30 09:02:00 2019-04-30 09:02:00 Outpatient Min Del Cid MD PA [id number] Chapo Del Cid MD 2019-04-27 08:42:00 2019-04-27 08:42:00 Outpatient Min RUIZ [id number] Chapo Del Cid MD 2019-04-17 09:46:00 2019-04-17 09:46:00 Outpatient Min RUIZ [id number] Chapo Del Cid MD 2019-04-09 09:54:00 2019-04-09 09:54:00 Outpatient Min Del Cid MD PA [id number] Chapo Del Cid MD 2019-03-26 11:25:00 2019-03-26 11:25:00 Outpatient Min Del Cid MD PA [id number] Chapo Del Cid MD 2019-03-15 15:00:00 2019-03-15 15:00:00 Outpatient Min Del Cid MD PA [id number] Chapo Del Cid MD 2019-03-15 13:30:00 2019-03-15 13:30:00 Outpatient Min Del Cid MD PA [id number] Chapo Del Cid MD 2019-03-14 10:14:00 2019-03-14 10:14:00 Outpatient Min Del Cid MD PA [id number] Chapo Del Cid MD 2019-02-20 13:49:00 2019-02-20 13:49:00 Outpatient Min Del Cid MD PA [id number] Chapo Del Cid MD 2019-02-12 15:27:00 2019-02-12 15:27:00 Outpatient Min RUIZ [id number] Chapo Del Cid MD 2019-01-22 11:27:00 2019-01-22 11:27:00 Outpatient Min Del Cid MD PA [id number] Chapo Del Cid MD 2019-01-05 08:40:00 2019-01-05 08:40:00 Outpatient Min Del Cid MD PA [id number] Chapo Del Cid MD 2018-12-18 09:29:00 2018-12-18 09:29:00 Outpatient Min Del Cid MD PA [id number] Chapo Del Cid MD 2018-12-11 14:45:00 2018-12-11 14:45:00 Outpatient Min Del Cid MD PA [id number] Chapo Del Cid MD 2018-12-11 07:33:00 2018-12-11 07:33:00 Outpatient Min Del Cid MD PA [id number] Chapo Del Cid MD 2018-11-23 08:03:00 2018-11-23 08:03:00 Outpatient Min Del Cid MD PA [id number] Chapo Del Cid MD 2018-11-02 08:56:00 2018-11-02 08:56:00 Outpatient Min Del Cid MD PA [id number] Chapo Del Cid MD 2018-11-02 08:15:00 2018-11-02 08:15:00 Outpatient Min Del Cid MD PA [id number] Chapo Del Cid MD 2018-10-20 09:24:00 2018-10-20 09:24:00 Outpatient Min Del Cid MD PA [id number] Chapo Del Cid MD 2018-10-12 15:49:00 2018-10-12 15:49:00 Outpatient Min Del Cid MD PA [id number] Chapo Del Cid MD 2018-10-11 09:56:00 2018-10-11 09:56:00 Outpatient Min Del Cid MD PA [id number] Chapo Del Cid MD 2018-09-21 10:45:00 2018-09-21 10:45:00 Outpatient Min Del Cid MD PA [id number] Chapo Del Cid MD 2018-09-05 13:13:00 2018-09-05 13:13:00 Outpatient Min Del Cid MD PA [id number] Chapo Del Cid MD 2018-09-04 13:58:00 2018-09-04 13:58:00 Outpatient Min RUIZ [id number] Chapo Del Cid MD 2018-05-22 11:25:00 2018-05-22 11:25:00 Outpatient Min Del Cid MD PA [id number] Chapo Del Cid MD 2018-05-22 10:30:00 2018-05-22 10:30:00 Outpatient Min Del Cid MD PA [id number] Chapo Del Cid MD 2018-05-19 14:38:00 2018-05-19 14:38:00 Outpatient Min Del Cid MD PA [id number] Chapo Del Cid MD 2018-04-18 11:24:00 2018-04-18 11:24:00 Outpatient Min Del Cid MD PA [id number] Chapo Del Cid MD 2018-01-24 17:14:00 2018-01-24 17:14:00 Outpatient Min Del Cid MD PA [id number] Chapo Del Cid MD 2018-01-16 11:18:00 2018-01-16 11:18:00 Outpatient Min Del Cid MD PA [id number] Chapo Del Cid MD 2018-01-16 11:10:00 2018-01-16 11:10:00 Outpatient Min Del Cid MD PA [id number] Chapo Del Cid MD 2018-01-16 10:30:00 2018-01-16 10:30:00 Outpatient Min Del Cid MD PA [id number] Chapo Del Cid MD 2017-09-19 16:03:00 2017-09-19 16:03:00 Outpatient Min Del Cid MD PA [id number] Chapo Del Cid MD 2017-09-15 10:30:00 2017-09-15 10:30:00 Outpatient Min RUIZ [id number] Chapo Del Cid MD Results Test Description Test Time Test Comments Results Result Comments Source BASIC METABOLIC PANEL 2019-10-17 06:20:00 Test Item SODIUM (test code = NA) 140 mmol/L 136-145 N POTASSIUM (test code = K) 5.2 mmol/L 3.5-5.1 H CHLORIDE (test code = CL) 104.0 mmol/L 98-107 N CARBON DIOXIDE (test code = CO2) 26.4 mmol/L 21-32 N GLUCOSE (test code = GLU) 113 mg/dL 70-110 H BLOOD UREA NITROGEN (test code = BUN) 29 mg/dL 7-18 H GLOMERULAR FILTRATION RATE (test code = GFR) 48.1 >60 Unit of measure: mL/min/1.73 [id number] Range:Healthy Adults >90 mL/min/1.73 m2 For Chronic Kidney Disease: Stage II Mild Decrease in GFR 60-90 Stage III Moderate Decrease in GFR 30-59 Stage IV Severe Decrease in GFR 15-29 Stage V Kidney Failure <15 CREATININE (test code = CREAT) 1.14 mg/dL 0.55-1.30 N CALCIUM (test code = CA) 8.6 mg/dL 8.2-10.1 N HGB [id number] 05:46:00* Test Item Value Reference Range Interpretation Comments HEMOGLOBIN (test code = HGB) 9.8 g/dL 12-16 L HEMATOCRIT (test code = HCT) 29.5 % 37-47 L COMPREHENSIVE METABOLIC [id number] 12:01:00* Test Item Value Reference Range Interpretation Comments SODIUM (test code = NA) 140 mmol/L 136-145 N POTASSIUM (test code = K) 4.0 mmol/L 3.5-5.1 N CHLORIDE (test code = CL) 102.0 mmol/L 98-107 N CARBON DIOXIDE (test code = CO2) 27.7 mmol/L 21-32 N GLUCOSE (test code = GLU) 106 mg/dL 70-110 N BLOOD UREA NITROGEN (test code = BUN) 22 mg/dL 7-18 H GLOMERULAR FILTRATION RATE (test code = GFR) 60.1 >60 Unit of measure: mL/min/1.73 [id number] Range:Healthy Adults >90 mL/min/1.73 m2 For Chronic Kidney Disease: Stage II Mild Decrease in GFR 60-90 Stage III Moderate Decrease in GFR 30-59 Stage IV Severe Decrease in GFR 15-29 Stage V Kidney Failure <15 CREATININE (test code = CREAT) 0.94 mg/dL 0.55-1.30 N TOTAL PROTEIN (test code = PROT) 7.4 g/dL 6.4-8.2 N ALBUMIN (test code = ALB) 3.3 g/dL 3.4-5.0 L GLOBULIN (test code = GLOB) 4.1 g/dL 2.2-4.2 N ALBUMIN/GLOBULIN RATIO (test code = A/G) 0.8 0.7-2.0 N CALCIUM (test code = CA) 8.8 mg/dL 8.2-10.1 N BILIRUBIN TOTAL (test code = BILT) 0.54 mg/dL 0.2-1.00 N SGOT/AST (test code = AST) 41.0 U/L 15-37 H SGPT/ALT (test code = ALT) 81.0 U/L 12-78 H P lease note new normal range. ALKALINE PHOSPHATASE TOTAL (test code = ALKP) 153 U/L 46-116 H PROTHROMBIN [id number] 11:22:00* Test Item Value Reference Range Interpretation Comments PROTHROMBIN TIME PATIENT (test code = PTP) 10.7 secs 10.1-12.5 N INTERNATIONAL NORMAL RATIO (test code = INR) 0.95 <2.0 RECOMMENDED THERAPEUTIC RANGE FOR ORAL ANTICOAGULANTTREATMENT: CONDITION INRProphylaxis of venous thrombosis in 2.0 - 3.0 high-risk medical or surgical patientsTreatment of venous thrombosis 2.0 - 3.0Prevention of embolism 2.0 - 3.0Prevention of recurrent embolism, or 3.0 - 4.5 patients with mechanical prosthetic intravascular valves IS PATIENT ON ANTICOAGULANTS ? NHas Lab been notified if Patient is on Heparin D rip? NOIf Yes, order CBC, OCCULT BLOOD, PT every other day NTHROMBOPLASTIN TIME [id number] 11:22:00* Test Item Value Reference Range Interpretation Comments PTT ACTIVATED (test code = APTT) 33.6 secs 24.9-37.0 N IS PATIENT ON ANTICOAGULANTS ? TXas Lab been notified if Patient is on Heparin D rip? NOIf Yes, order CBC, OCCULT BLOOD, PT every other day NCBC W/AUTO DIFF 2019-09-25 11:07:00* Test Item Value Reference Range Interpretation Comments WHITE BLOOD CELL (test code = WBC) 9.2 K/mm3 5.8-11.0 N RED BLOOD CELL (test code = RBC) 4.25 M/mm3 4.2-5.4 N HEMOGLOBIN (test code = HGB) 12.2 g/dL 12-16 N HEMATOCRIT (test code = HCT) 37.4 % 37-47 N MEAN CELL VOLUME (test code = MCV) 88 fL 80-98 N MEAN CELL HGB (test code = MCH) 28.7 pg 27-34 N MEAN CELL HGB CONCENTRATION (test code = MCHC) 32.6 g/dL 30.8-34 .1 N RED CELL DISTRIBUTION WIDTH (test code = RDW) 12.7 % 11-16 N PLT (test code = PLT) 328 K/mm3 130-400 N MEAN PLATELET VOLUME (test code = MPV) 9.5 fL 8.9-12.1 N NEUTROPHIL % (test code = NT%) 63.8 % 45-70 N LYMPHOCYTE % (test code = LY%) 18.4 % 20-40 L MONOCYTE % (test code = MO%) 12.5 % 3-10 H EOSINOPHIL % (test code = EO%) 4.2 % 1-5 N BASOPHIL % (test code = BA%) 0.7 % 0.0-1.1 N NEUTROPHIL # (test code = NT#) 5.86 K/mm3 2.00-7.50 N LYMPHOCYTE # (test code = LY#) 1.69 K/mm3 1.50-4.00 N MONOCYTE # (test code = MO#) 1.15 K/mm3 0.2-0.8 H EOSINOPHIL # (test code = EO#) 0.39 K/mm3 0.04-0.4 N BASOPHIL # (test code = BA#) 0.06 K/mm3 0.02-0.10 N MANUAL DIFF REQUIRED (test code = MDIFF) NO MANUAL DIFF NUCLEATED RED BLOOD CELL (test code = NRBC) 0 % 0-0 N Large Joint Arthrocentesis: knee, R [id number] 09:45:00Leroy Snyder MD 07/06/2019 10:46 AMLarge Joint Arthrocentesis: knee, R kneeConsent given by: patientSupporting DocumentationIndications: pain Procedure DetailsLocation: knee - R knee Right side:Needle size: 22 GApproach: anter omedialRight knee medications administered: 3 mL lidocaine 10 mg/mL (1 %); 1 mL triamcinolone acetonide 40 mg/mLPatient tolerance: patient tolerated the procedu re well with no immediate complications [facility] M[facility]M BILATERAL ORTIZ CAD [id number] 14:02:01 - SCR MAMM BILATERAL ORTIZ CAD DIGITALBILATERAL DIGITAL SCREENING MAMMOGRAM 3D/2D WITH CAD: 02/06/2019CLINICAL: Asymptomatic. Digital breast tomosynthesis was performed in addition to routine CC and MLO views. Current mammographic images were evaluated by either a Newtron M-Vu or a Smart Sparrow ImageChecker CAD (computer aided detection system). Comparison is made to exams dated 09/28/2017 mammogram - [facility], 04/05/2016 mammogram - [facility], and 04/11/2014 mammogram - [facility]. There are scattered fibroglandular tissues in both breasts. There is a biopsy clip in the right breast. No suspicious mass, architectural distortion, malignant type calcification, or lymph node abnormality detected. Breast architecture is stable compared to prio r exams.IMPRESSION: BENIGNThere is no mammographic evidence of malignancy. Resum e annual screening mammography in one year. Vinnie green/penrad :02/06/2019 14:02:01 Tow Motor Driver: Colleen ESTEBAN, [facility]: BIRADS 1-2 Normal Mammogram BI-RADS: 2 Benign
--- OUTSIDE RECORDS SUMMARY | 2020-03-02 00:50 | XMS REPORT ---
Author Author APRIL Zelaya [facility] eClinicalWorks Address Unknown Phone Unavailable Care Team Providers Care Broadcast Director Operations Name Role Phone Juliette Zelaya Unavailable Allergies No Known Allergies Problems Problem Type Condition Code Onset Dates Condition Statu s Problem Posterior tibial tendinitis, right leg M76.821 Active Problem Rheumatoid arthritis with rh eumatoid factor of multiple sites without organ or systems involvement M05.79 Active Problem Other penitentiary (current) drug therapy Z79.899 Active Assessment Rheumatoid [...] Date End Date Status Dosage Humira Pen [facility] 21405218841 40 MG/0.8ML Subcutaneous Every two weeks Active 0.8 ml Results No Known Results Summary Purpose eClinicalWorks Submission
--- OUTSIDE RECORDS SUMMARY | 2020-03-02 00:50 | XMS REPORT ---
Author Author APRIL Del Cid Organization eClinicalWorks Address Unknown Phone Unavailable Care Team Providers Care Air Operations Manager Name Role Phone Min Del Cid CP [...] organ or systems involvement M05.79 Active Assessment superintendent terminal prescription opiate use Z79.891 Active Problem Other exterminator termite (current) drug therapy Z79.899 Active Assessment Other exterminator termite (current) drug therapy Z79.899 Active Problem Rheumatoid arthritis with rh eumatoid factor of multiple sites without organ or systems involvement M05.79 Active Medications No Known Medications Results No Known Results Summary Purpose eClinicalWorks Submission
--- OUTSIDE RECORDS SUMMARY | 2020-03-02 00:50 | XMS REPORT ---
Author Author APRIL Del Cid Organization eClinicalWorks Address Unknown Phone Unavailable Care Team Providers Care Environmental Sampler Name Role Phone Min Del Cid CP [...] Start Date End Date Status Dosage Medrol [facility] 84847088652 4 MG Orally q am with food Oct 12January 10, 2019 Active 2 tablets with food or milk in the morni ng Results No Known Results Summary Purpose eClinicalWorks Submission
--- OUTSIDE RECORDS SUMMARY | 2020-03-02 00:50 | XMS REPORT ---
Author Author APRIL Del Cid Organization eClinicalWorks Address Unknown Phone Unavailable Care Team Providers Care Relief Mate Name Role Phone Min Del Cid CP [...] Myofascial pain M79.1 Active Problem Other intermodal truck driver (current) drug therapy Z79.899 Active Problem Right foot pain M79.671 Active Problem Rheumatoid arthritis with rh eumatoid factor of multiple sites without organ or systems involvement M05.79 Active Problem Encounter for immunization Z23 A ctive Medications Medication Code System Code Instructions Start Date End Date Status Dosage [facility]ychloroquine [facility]ulf[facility] 84950[facility]83 200 MG Orally Once a day January 15, 2020 Active 1 tablet Results No Known Results Summary Purpose eClinicalWorks Submission
--- OUTSIDE RECORDS SUMMARY | 2020-03-02 00:50 | XMS REPORT ---
Author Author APRIL Del Cid Organization eClinicalWorks Address Unknown Phone Unavailable Care Team Providers Care Keg Inspector Name Role Phone Min Del Cid [...]
--- OUTSIDE RECORDS SUMMARY | 2020-03-02 00:50 | XMS REPORT ---
Author Author APRIL Reyes Organization eClinicalWorks Address Unknown Phone Unavailable Care Team Providers Care Quality Control Head Name Role Phone Lulu Reyes CP Unavailable [...] Problem Myofascial pain M79.1 Active Problem Other edge grinder (current) drug therapy Z79.899 Active Problem Right foot pain M79.671 Active Problem Rheumatoid arthritis with rh eumatoid factor of multiple sites without organ or systems involvement M05.79 Active Problem Encounter for immunization Z23 A ctive Medications No Known Medications Results No Known Results Summary Purpose eClinicalWorks Submission
--- OUTSIDE RECORDS SUMMARY | 2020-03-02 00:50 | XMS REPORT ---
Author Author APRIL Del Cid Organization eClinicalWorks Address Unknown Phone Unavailable Care Team Providers Care Rope Silica Machine Operator Name Role Phone Min Del Cid [...] Problem Myofascial pain M79.1 Active Problem Other terminal computer operator (current) drug therapy Z79.899 Active Problem Right foot pain M79.671 Active Problem Rheumatoid arthritis with rh eumatoid factor of multiple sites without organ or systems involvement M05.79 Active Problem Encounter for immunization Z23 A ctive Medications Medication Code System Code Instructions Start Date End Date Status Dosage Hydroxychloroquine Sulfate [facility] 90123264252 200 MG Orally Once a day Sep 19, 2019 Inactive 1 tablet Results No Known Results Summary Purpose eClinicalWorks Submission
--- OUTSIDE RECORDS SUMMARY | 2020-03-02 00:50 | XMS REPORT ---
Author Author APRIL Del Cid Organization eClinicalWorks Address Unknown Phone Unavailable Care Team Providers Care Pegger Name Role Phone Min Del Cid CP [...] Problem Myofascial pain M79.1 Active Problem Other exterminator termite (current) drug therapy Z79.899 Active Problem Right foot pain M79.671 Active Problem Rheumatoid arthritis with rh eumatoid factor of multiple sites without organ or systems involvement M05.79 Active Problem Encounter for immunization Z23 A ctive Medications No Known Medications Results No Known Results Summary Purpose eClinicalWorks Submission
--- OUTSIDE RECORDS SUMMARY | 2020-03-02 00:50 | XMS REPORT ---
Author Author APRIL Reyes Organization eClinicalWorks Address Unknown Phone Unavailable Care Team Providers Care Chief Medical Director Name Role Phone Lulu Reyes CP Unavailable [...] osteoarthritis involving multiple joints M15.0 Active Assessment Osteoporosis M81.0 Active Problem Other long-term (current) drug therapy Z79.899 Active Assessment Other local company intermodal truck driver (current) drug therapy Z79.899 Active Problem Rheumatoid arthritis with rh eumatoid factor of multiple sites without organ or systems involvement M05.79 Active Assessment Rheumatoid arthritis with rh eumatoid factor of multiple sites without organ or systems involvement M05.79 Active Problem Posterior tibial tendinitis, right leg M76.821 Active Medications Medication Code System Code Instructions Start Date End Date Status Dosage Protonix NDC 12990938804 20 MG Orally Once a day Act marixa 1 tablet Enbrel SureClick ND 16861329516 50 MG/ML Subcutaneous every w [place]ib[place] April 30, 2019 Active 1 ml PredniSONE NDC 69354013128 5 MG Orally Once a day Sep 14, 2019 Active 1 tablet Prolia ND 58797728282 60 MG/ML Subcutaneous Q 6 MONTHS Sep 17 9 Active as directed Hydrocodone-Acetaminophen ND 02165227959 5-325 MG Orally BID De 2018 Active 1 tablet Vagifem [facility] 03702993763 10 MCG Vaginal twice a week Active 1 tablet Valsartan-Hydrochlorothiazide [facility] 28205819048 160-12.5 MG Orally Once a day Active 1 tablet Probiotic [facility] 74715329213 OTC Orally Once a day Acti ve as directed Vital Signs Date/Time: Nov 13, 2019 BMI 28.71 Index Weight 175.2 lbs Height 65.5 in Temperature 98.8 F Cardiac Monitoring Heart Rate 112 /min Blood Pressure Diastolic 82 mm Hg Blood Pressure Systolic 144 mm Hg Results No Known Results Summary Purpose eClinicalWorks Submission
--- OUTSIDE RECORDS SUMMARY | 2020-03-02 00:50 | XMS REPORT ---
Author Author APRIL Del Cid Organization eClinicalWorks Address Unknown Phone Unavailable Care Team Providers Care Developmental Behavioral Physician Name Role Phone Min Del Cid CP [...] Myofascial pain M79.1 Active Problem Other intermodal dispatcher (current) drug therapy Z79.899 Active Problem Right foot pain M79.671 Active Problem Rheumatoid arthritis with rh eumatoid factor of multiple sites without organ or systems involvement M05.79 Active Problem Encounter for immunization Z23 A ctive Medications No Known Medications Results No Known Results Summary Purpose eClinicalWorks Submission
--- OUTSIDE RECORDS SUMMARY | 2020-03-02 00:50 | XMS REPORT ---
Author Author APRIL Del Cid Organization eClinicalWorks Address Unknown Phone Unavailable Care Team Providers Care Crimping Machine Operator For Metal Name Role Phone Min Del Cid CP [...] Problem Myofascial pain M79.1 Active Problem Other termite inspector (current) drug therapy Z79.899 Active Problem Right foot pain M79.671 Active Problem Rheumatoid arthritis with rh eumatoid factor of multiple sites without organ or systems involvement M05.79 Active Problem Encounter for immunization Z23 A ctive Medications No Known Medications Results No Known Results Summary Purpose eClinicalWorks Submission
--- OUTSIDE RECORDS SUMMARY | 2020-03-02 00:50 | XMS REPORT ---
Author Author APRIL Del Cid Organization eClinicalWorks Address Unknown Phone Unavailable Care Team Providers Care Fur Designer Name Role Phone Min Del Cid CP Unavailable Allergies No Known Allergies Problems Problem Type Condition Code Onset Dates Condition Statu s Problem Posterior tibial tendinitis, right leg M76.821 Active Problem Rheumatoid arthritis with rh eumatoid factor of multiple sites without organ or systems involvement M05.79 Active Problem Other correction (current) drug therapy Z79.899 Active Problem Shortness [...]
--- OUTSIDE RECORDS SUMMARY | 2020-03-02 00:50 | XMS REPORT ---
Author Author APRIL Del Cid Organization eClinicalWorks Address Unknown Phone Unavailable Care Team Providers Care Wwe Wrestler Name Role Phone Min Del Cid CP Unavailable Allergies No Known Allergies Problems Problem Type Condition Code Onset Dates Condition Statu s Problem Posterior tibial tendinitis, right leg M76.821 Active Problem Myofascial pain M79.1 Active Problem Osteopenia M85.80 Active Problem Other long wall shear operator (current) drug therapy Z79.899 Active Problem [...] Start Date End Date Status Dosage Enbrel Liliana [facility] 59442404998 50 MG/ML Subcutaneous every [facility] [place] April 30, 2019 Active 1 ml Results No Known Results Summary Purpose eClinicalWorks Submission
--- OUTSIDE RECORDS SUMMARY | 2020-03-02 00:50 | XMS REPORT ---
Author Author APRIL Del Cid Organization eClinicalWorks Address Unknown Phone Unavailable Care Team Providers Care Auxiliary Equipment Tender Name Role Phone Min Del Cid CP Unavailable Allergies No Known Allergies Problems Problem Type Condition Code Onset Dates Condition Statu s Problem Posterior tibial tendinitis, right leg M76.821 Active Problem Rheumatoid arthritis with rh eumatoid factor of multiple sites without organ or systems involvement M05.79 Active Problem Other extermination supervisor (current) drug therapy Z79.899 Active Problem Shortness of breath R06.02 Active Problem Vitamin D deficiency E55.9 Active Problem Primary osteoarthritis involving multiple joints M15.0 Active Problem Myofascial pain M79.1 Active Problem Osteopenia M85.80 Active Problem Encounter for immunization Z23 A ctive Problem Right foot pain M79.671 Active Medications Medication Code System Code Instructions Start Date End Date Status Dosage Hydroxychloroquine Sulfate [facility] 98834894427 200 MG Orally Twice a day Sep 05, 2018 Active 1 Tablet Results No Known Results Summary Purpose eClinicalWorks Submission
--- OUTSIDE RECORDS SUMMARY | 2020-03-02 00:50 | XMS REPORT ---
Author Author APRIL Harrell [facility] eClinicalWorks Address Unknown Phone Unavailable Care Team Providers Care Nuclear Physicist Name Role Phone Doreen Harrell Unavailable Allergies, [...] Problem Shortness of breath R06.02 Active Problem Other intermediate designer (current) drug therapy Z79.899 Active Assessment Other intermediate designer (current) drug therapy Z79.899 Active Problem Rheumatoid arthritis with rh eumatoid factor of multiple sites without organ or systems involvement M05.79 Active Assessment Rheumatoid arthritis with rh eumatoid factor of multiple sites without organ or systems involvement M05.79 Active Problem Posterior tibial tendinitis, right leg M76.821 Active Medications Medication Code System Code Instructions Start Date End Date Status Dosage Valsartan-Hydrochlorothiazide ND 33140111240 160-12.5 MG Orally Once a day Active 1 tablet Hydroxychloroquine Sulfate ND 10059519660 200 MG Orally Once a day Active 1 tablet Protonix ND 71201860599 20 MG Orally Once a day Act marixa 1 tablet PredniSONE ND 63632201601 5 MG Orally Once a day May 28, 2019 Active 2 tablets Probiotic ND 57805912234 OTC Orally Once a day Acti ve as directed Enbrel SureClick [facility] 25773416143 50 MG/ML Subcutaneous every w [place] April 30, 2019 Active 1 ml Sulfasalazine [facility] 32000502694 500 MG Orally bid Jun 26, 2019 Ja n 2019 Active 3 tabs Hydrocodone-Acetaminophen ND 90105178811 5-325 MG Orally BID Active 1 tablet Vagifem [facility] 88474835671 10 MCG Vaginal twice a week Active 1 tablet Vital Signs Date/Time: Jun 26, 2019 BMI 27.90 Index Weight 167.7 lbs Height 65 in Temperature 99.2 F Cardiac Monitoring Heart Rate 80 /min Blood Pressure Diastolic 78 mm Hg Blood Pressure Systolic 132 mm Hg Results No Known Results Summary Purpose eClinicalWorks Submission
--- OUTSIDE RECORDS SUMMARY | 2020-03-02 00:50 | XMS REPORT ---
Author Author APRIL Zelaya [facility] eClinicalWorks Address Unknown Phone Unavailable Care Team Providers Care Automotive Worker Foreman Name Role Phone Juliette Zelaya Unavailable Allergies, [...] or systems involvement M05.79 Active Problem Other sales agent food vending service (current) drug therapy Z79.899 Active Assessment Other senior living (current) drug therapy Z79.899 Active Assessment Rheumatoid [...] Start Date End Date Status Dosage Pataday [facility] 85056152965 0.2 % Ophthalmic as needed A ctive as directed Valsartan-Hydrochlorothiazide [facility] 41192422594 160-12.5 MG Orally Once a day Active 1 tablet Probiotic [facility] 71350722499 OTC Orally Once a day Acti ve as directed Humira Pen [facility] 74555176271 40 MG/0.8ML Subcutaneous Every two weeks Active 0.8 ml Vagifem [facility] 59225851035 10 MCG Vaginal twice a week Active 1 tablet Omeprazole ND 23143061997 20 MG Orally as needed Ac tive 1 capsule as needed Hydrocodone-Acetaminophen [facility] 16956046675 5-325 MG Orally BID Active 1 tablet Medrol [facility] 54020429629 4 MG Orally q am with food Oct 12 9 January 10, 2019 Active 2 tablets with food or milk in the morni ng PredniSONE [facility] 76210936981 20 MG Orally Once a day A ctive 1 tablet Hydroxychloroquine Sulfate [facility] 36264246176 200 MG Orally Twice a day Active 1 tablet Vital Signs Date/Time: Nov 02, 2018 BMI 29.15 Index Weight 180.6 lbs Height 66 in Temperature 97.3 F Cardiac Monitoring Heart Rate 72 /min Blood Pressure Diastolic 70 mm Hg Blood Pressure Systolic 132 mm Hg Results No Known Results Summary Purpose eClinicalWorks Submission
--- OUTSIDE RECORDS SUMMARY | 2020-03-02 00:50 | XMS REPORT ---
Author Author APRIL Del Cid Organization eClinicalWorks Address Unknown Phone Unavailable Care Team Providers Care Instrument Assembly Supervisor Name Role Phone Min Del Cid [...] Problem Myofascial pain M79.1 Active Problem Other termination clerk (current) drug therapy Z79.899 Active Problem Right foot pain M79.671 Active Problem Rheumatoid arthritis with rh eumatoid factor of multiple sites without organ or systems involvement M05.79 Active Problem Encounter for immunization Z23 A ctive Medications No Known Medications Results No Known Results Summary Purpose eClinicalWorks Submission
--- OUTSIDE RECORDS SUMMARY | 2020-03-02 00:50 | XMS REPORT ---
Author Author APRIL Reyes Organization eClinicalWorks Address Unknown Phone Unavailable Care Team Providers Care Wire Bender Hand Name Role Phone Lulu Reyes CP Unavailable [...]
[2020-03-02] MEDS ORDERED: CLONIDINE HCL 0.1 MG TAB PO ONE (01:00)
--- NOTE | 2020-03-02 01:06 | Emergency Department Note ---
History of Present Illnes History of Present Illness Chief Complaint: Hypertension History of Present Illness This is a 64 year old female presents with c/o elevated blood pressure and palpitations. pt states had sami food for dinner, woke up from sleep felt like her heart was beating hard, states this has happened before and her blood pressure was high, she checked her blood pressure and it was 217/107, at this time has no other symptoms, denies chest pain, denies sob, denies headache. Historian: Patient Arrival Mode: Car Onset (how long ago): hour(s) (1) Location: none Quality: elevated blood pressure Severity: moderate Onset quality: sudden Duration (how long): hour(s) (1) Timing of current episode: unable to specify Progression: partially resolved Chronicity: recurrent Relieving factors: none Exacerbating factors: none Associated symptoms: denies other symptoms Past Medical/Family History Physician Review I have reviewed the patient's past medical and family history. Any updates have been documented here. Past Medical History Recent Fever: No Clinical Suspicion of Infectio: No New/Unexplained Change in Ment: No Past Medical History: Hypertension Other Medical History: RA, Past Surgical History: Cholecysctectomy Other Surgery: R knee Social History Smoking Cessation: Never Smoker Alcohol Use: None Any Illegal Drug Use: No Other Last Tetanus: UTD Review of Systems Review of Systems Constitutional: no symptoms EENTM: no symptoms Cardiovascular: no symptoms Respiratory: no symptoms Gastrointestinal: no symptoms Genitourinary: no symptoms Musculoskeletal: no symptoms Neurological: no symptoms Psychological: no symptoms Endocrine: no symptoms Hematological/Lymphatic: no symptoms Review of other systems All other systems reviewed and negative. Physical Exam Related Data Allergies: Coded Allergies: No Known Drug Allergies (Verified Allergy, Mild, 07/24/10) Triage Vital Signs Vital Signs Date Time Temp Pulse Resp B/P (MAP) Pulse Ox O2 Delivery O2 Flow Rate FiO2 03/02/20 00:57 97.2 73 20 193/85 99 Vital signs reviewed: Yes Physical Exam CONSTITUTIONAL Constitutional: well-developed, well-nourished HENT HENT: normocephalic, atraumatic, oropharynx clear/moist, nose normal HENT L/R: left ext ear normal, right ext ear normal EYES Eyes: PERRL, conjunctivae normal NECK Neck: ROM normal PULMONARY Pulmonary: effort normal, breath sounds normal CARDIOVASCULAR Cardiovascular: regular rhythm, heart sounds normal, capillary refill normal, normal rate GASTROINTESTINAL Abdominal: soft, nontender, bowel sounds normal GENITOURINARY Genitourinary: exam deferred SKIN Skin: warm, dry MUSCULOSKELETAL Musculoskeletal: ROM normal NEUROLOGICAL Neurological: alert, oriented x 3, no gross motor or sensory deficits PSYCHOLOGICAL Psychological: mood/affect normal, judgement normal Procedures 12 Lead ECG Interpretation Hydraulic Elevator Constructor: Interpreted by ED physician Rhythm: sinus rhythm Rate: normal (77) QRS axis: normal ST segments normal: Yes T waves normal: Yes Other findings: LVH with strain Clinical Impression: non-specific ECG Critical Care Time Subsequent provider I assumed direction of critical care for this patient from another provider of my specialty. Assessment & Plan Reassessment Reassessment time: 01:46 Reassessment blood pressure 159/77, pt feels good, still without any symptoms at this time Assessment & Plan Final Impression: (1) Hypertension Assessment & Plan pt with elevated blood pressure and palpitations earlier that have resolved. ekg ordered to eval for arrhythmia clonidine 0.1 mg po ordered Depart Disposition: HOME, SELF-CARE Last Vital Signs Date Time Temp Pulse Resp B/P (MAP) Pulse Ox O2 Delivery O2 Flow Rate FiO2 03/02/20 00:57 97.2 73 20 193/85 99 Home Meds Reported Medications Hydroxychloroquine Sulfate (PLAQUENIL) 200 Mg Tab, 200 MG PO BID, #30 TAB 07/22/14 Etanercept (Enbrel) 50 Mg/1 Ml Pen.injctr, 50 MG SQ WEEKLY 06/24/12 Hydrocodone Bit/Acetaminophen (Vicodin 5-500 Tablet) 1 Each Tablet, 1 EACH PO PRN 06/24/12 Estradiol (Vagifem) 10 Mcg Tablet, 10 MCG VG BID 06/24/12 Valsartan/Hydrochlorothiazide (Diovan Hct 160-12.5 Mg Tab) 1 Each Tablet, 1 EACH PO DAILY 06/24/12 Medications in the ED Clonidine HCl 0.1 mg ONCE ONCE PO ; Start 03/02/20 at 01:00; Stop 03/02/20 at 01:01 JAYJAY MOROCHO MD March 02, 2020 01:06
[2020-03-02 01:49] VITALS: BP 159/77
== END 2020-03-02 01:58 | disposition home or self-care (01) ==
LOC: ER 00:45
DX: I10 Essential (primary) hypertension (principal); R00.2 Palpitations; M06.9 Rheumatoid arthritis, unspecified
CPT/HCPCS: 93005; 99283

== ENCOUNTER → 2021-07-14 | Outpatient (CLI) | payer BC ==
[~2021-07-14] MED LIST changes: +IOPAMIDOL 370 MG/ML 200 ML INFUS..BTL INJ ONE; +METOPROLOL TARTRATE 25 MG TAB ONE; +METOPROLOL TARTRATE INJ 1 MG/ML VIAL ONE; +NITROGLYCERIN 0.4 MG SUBL ONE; +SODIUM CHLORIDE 0.9% 100 ML ONE
[2021-07-14 09:34] LABS: CREATININE, SERUM 0.79 mg/dL (0.57-1.11)
== END ==
LOC: CT 08:10
PROVIDERS: ATTEND Internal Medicine Cardiovascular Disease
DX: R00.2 Palpitations (principal); R94.39 Abnormal result of other cardiovascular function study
CPT/HCPCS: 36415; 75574; 82565; 84520; J7050; Q9967